=== PATIENT | male | born 1975 | race Caucasian/White ===

== ENCOUNTER 2021-01-10 15:06 | Inpatient (IN) | payer OTHER ==
[2021-01-10] MEDS ORDERED: Albuterol/Ipratropium 3.0-0.5 MG/3 ML Neb Soln ONE (15:23)
[2021-01-10] MEDS ORDERED: Albuterol/Ipratropium 3.0-0.5 MG/3 ML Neb Soln NEB PRN (15:25)
--- NOTE | 2021-01-10 15:28 | EDM.PDOC ---
ED HPI GENERAL MEDICAL PROBLEM - General Chief Complaint: Respiratory Problem Stated Complaint: HIGH BP/SOB Time Seen by Provider: 01/10/21 15:16 Source of Information: Reports: Patient History Limitations: Reports: No Limitations - History of Present Illness INITIAL COMMENTS - FREE TEXT/NARRATIVE: 45-year-old male presents to the ED due to increased shortness of breath on mini mal exertion and audible wheezing. He states has been like this and gradually getting worse over the last 6 to 8 months. States he can walk across the box coverer hand without becoming short of breath. 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 Patient started smoking cigarettes 5 years ago. He has no history of childhood asthma. Occasional cough with occasional white sputum production. No hemoptysis. He is waking up with a severe headache every morning suggesting hypercapnia. He has a headache a good portion of the day most days which has been gradually getting worse. No problems with his balance or change in eyesight. He has not seen a physician for many years. He is currently on no medications from a doctor. Blood pressure initially is markedly elevated at 178/122. Onset: Gradual, Unknown/Unsure (As of shortness of breath with audible wheezing started longer than 6 months ago.) Duration: Chronic, Getting Worse Location: Reports: Head (Neck daily headaches.), Chest (Shortness of breath with audible wheezing.) Quality: Reports: Ache, Other Severity: Severe (Of breath with audible wheezing on minimal exertion.) Improves with: Reports: Rest Worsens with: Reports: Other Context: Denies: Activity (Worsens with exertion as does dyspnea and wheezing.), Exercise, Lifting, Sick Contact, Trauma Associated Symptoms: Reports: Cough, Loss of Appetite (Next will sometimes make him lose his appetite.), Malaise, Shortness of Breath (Daily and especially on minimal exertion even dressing himself will make him dyspneic.), Weakness (Social with dyspnea and wheezing.). 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 (see below) (None.) - Related Data Allergies Allergy/AdvReac Type Severity Reaction Status Date / Time No Known Allergies Allergy Verified 01/10/21 15:13 Home Meds: Home Meds Albuterol Sulfate [Albuterol Sulfate HFA] 8.5 gm INH Q2H PRN #1 inhaler 01/10/21 [Rx] Albuterol/Ipratropium [DuoNeb 3.0-0.5 MG/3 ML] 3 ml .XX BID #60 neb 01/10/21 [Rx] Furosemide [Lasix] 20 mg PO DAILY #30 tab 01/10/21 [Rx] Valsartan 160 mg PO DAILY #30 tablet 01/10/21 [Rx] dilTIAZem HCL [Diltiazem 24Hr Cd] 300 mg PO DAILY #30 cap.er.24h 01/10/21 [Rx] Past Medical History HEENT History: Reports: None Cardiovascular History: Reports: Hypertension Respiratory History: Reports: None Gastrointestinal History: Reports: None Genitourinary History: Reports: None Musculoskeletal History: Reports: None Neurological History: Reports: None Psychiatric History: Reports: None Endocrine/Metabolic History: Reports: None Hematologic History: Reports: None Immunologic History: Reports: None Oncologic (Cancer) History: Reports: None Dermatologic History: Reports: None - Infectious Disease History Infectious Disease History: Reports: Chicken Pox - Past Surgical History Head Surgeries/Procedures: Reports: None HEENT Surgical History: Reports: Oral Surgery Other HEENT Surgeries/Procedures: implants placed recently Cardiovascular Surgical History: Reports: None Respiratory Surgical History: Reports: None GI Surgical History: Reports: None Male Surgical History: Reports: None Endocrine Surgical History: Reports: None Neurological Surgical History: Reports: None Musculoskeletal Surgical History: Reports: Other (See Below) Other Musculoskeletal Surgeries/Procedures:: right collar bone -metal Oncologic Surgical History: Reports: None Dermatological Surgical History: Reports: None Social & Family History - Family History Family Medical History: No Pertinent Family History - Tobacco Use Tobacco Use Status *Q: Current Every Day Tobacco User Years of Tobacco use: 5 Packs/Tins Daily: 0.5 - Caffeine Use Caffeine Use: Reports: Energy Drinks Caffeine Use Comment: 1 gal/day - Recreational Drug Use Recreational Drug Use: No - Living Situation & Occupation Living situation: Reports: Single Occupation: Employed ED ROS GENERAL - Review of Systems Review Of Systems: See Below Constitutional: Reports: Malaise, Weakness, Fatigue. Denies: Fever, Chills, Decreased Appetite, Weight Loss HEENT: Reports: Glasses (Reading), Hearing Loss Respiratory: Reports: Shortness of Breath, Wheezing (Hearing loss), Cough (That he does not know about. Blood pressure is markedly elevated on today's evaluation). Denies: Pleuritic Chest Pain, Sputum, Hemoptysis, Other (Cough) Cardiovascular: Reports: Blood Pressure Problem, Dyspnea on Exertion. Denies: Chest Pain, Claudication, Edema, Lightheadedness, Orthopnea, Palpitations Endocrine: Reports: Fatigue GI/Abdominal: Reports: Decreased Appetite, Nausea. Denies: Abdominal Pain, Anorexia, Black Stool, Bloody Stool, Constipation (Associate with severe headaches.), Diarrhea, Difficulty Swallowing, Distension, Flatus, Hematemesis, Hematochezia, Mucous in Stool, Stool Incontinence, Vomiting, Other : Reports: Frequency (Patient on nausea when the headaches bad), Other (Nocturia x2) Musculoskeletal: Reports: Back Pain, Joint Pain Skin: Reports: No Symptoms (The sips neck at times) Neurological: Reports: Headache (Take on a daily basis.), Difficulty Walking (Dyspnea and wheezing.) Psychiatric: Reports: No Symptoms Hematologic/Lymphatic: Reports: No Symptoms Immunologic: Reports: No Symptoms ED EXAM, GENERAL - Physical Exam Exam: See Below Exam Limited By: No Limitations General Appearance: Alert, WD/WN, Moderate Distress, Other (Patient has audible wheezing when I walked in the room. Temperature is 36.6 degrees heart rate was 106 and sinus on the monitor respiratory rate 16 with O2 sats of 89% on room air. BP was 229/140 on initial evaluation. Second evaluation came down to 169/118) Eye Exam: Bilateral Eye: Normal Inspection, PERRL Ears: Normal TMs Throat/Mouth: Normal Inspection, Normal Lips, Normal Teeth, Normal Oropharynx Head: Atraumatic, Normocephalic Neck: Normal Inspection, Supple, Non-Tender, Full Range of Motion, Tender Lateral (Some crepitus on lateral rotation of his neck.). No: Lymphadenopathy (L), Lymphadenopathy (R) Respiratory/Chest: Respiratory Distress, Decreased Breath Sounds, Wheezing (Tachypnea 16 to 20/min), Other (Patient has a linear scar along his right clavicle at the site of repair of fractured clavicle in the past.). No: No Respiratory Distress, Lungs Clear ( [place] from all lung nick.), Normal Breath Sounds Cardiovascular: Normal Peripheral Pulses, Regular Rate, Rhythm, No Edema, No Gallop, No Murmur (Creased air entry to the lower 25% lung nick bilaterally.), No Rub, Tachycardia (Tachycardia at 106/min but it came down to 75/min after he was settled on the gurney for 20 minutes.) Peripheral Pulses: 2+: Radial (L), Radial (R), Posterior Tibial (L), Posterior Tibial (R), Dorsalis Pedis (L), Dorsalis Pedis (R), 3+: Carotid (L), Carotid (R) GI/Abdominal: Normal Bowel Sounds, Soft, Non-Tender, No Organomegaly, No Mass, Pelvis Stable, Distended (Mildly distended tympany to percussion in the epigastrium only. No surgical scars) Back Exam: Normal Inspection, Full Range of Motion, Other. No: CVA Tenderness (L), CVA Tenderness (R) Extremities: Normal Inspection, Normal Range of Motion, Non-Tender, No Pedal Edema, Other (He has evidence of mild arthritic change in both knees.) Neurological: Alert, Oriented, CN II-XII Intact, Normal Cognition Psychiatric: Normal Affect, Normal Mood Skin Exam: Warm, Dry, Intact, Normal Color, No Rash #1 Interpretation EKG Date: 01/10/21 Time: 15:15 Rhythm: Other Rate (Beats/Min): 116 [place]: Normal P-Wave: Present QRS: Other (Q waves V1 V2 V3 compared with old anteroseptal myocardial infarction. Borderline criteria for left ventricular hypertrophy pattern decreased voltage limb leads) ST-T: Other (T wave flattening leads III aVF) QT: Prolonged (Mildly prolonged) EKG Interpretation Comments: Abnormal ECG Course - Vital Signs Last Recorded V/S: Last Vital Signs Temp 36.6 C 01/10/21 15:10 Pulse 106 H 01/10/21 15:10 Resp 16 01/10/21 18:31 BP 147/80 H 01/10/21 18:31 Pulse Ox 99 01/10/21 18:31 - Orders/Labs/Meds Orders: Active Orders 24 hr Category Date Time Status Admission Status [Patient Status] [ADT] Routine ADT 01/10/21 18:09 Active EKG Documentation Completion [RC] ASDIRECTED Care 01/10/21 15:19 Active Oxygen Therapy [RC] ASDIRECTED Care 01/10/21 15:45 Active RT Aerosol Therapy [RC] ASDIRECTED Care 01/10/21 15:25 Active RT Aerosol Therapy [RC] ASDIRECTED Care 01/10/21 17:51 Active RT Post Treatment Assessment [RC] Click to Edit Care 01/10/21 17:16 Active RT Pre-Treatment Assessment [RC] Click to Edit Care 01/10/21 17:16 Active TROPONIN I [CHEM] Stat Lab 01/10/21 18:42 Received Albuterol [Proventil HFA] Med 01/10/21 17:15 Active 8.5 gm INH Q4H PRN Albuterol/Ipratropium [DuoNeb 3.0-0.5 MG/3 ML] Med 01/10/21 15:25 Active 3 ml NEB Q4H PRN Sodium Chloride 0.9% [Normal Saline] 1,000 ml Med 01/10/21 15:45 Active IV ASDIRECTED EKG 12 Lead [EK] Stat Ther 01/10/21 15:19 Ordered Labs: Laboratory Tests 01/10/21 01/10/21 01/10/21 Range/Units 15:17 15:17 15:17 WBC 10.86 H (4.23-9.07) K/mm3 RBC 5.58 (4.63-6.08) M/mm3 Hgb 16.0 (13.7-17.5) gm/dl Hct 50.5 (40.1-51.0) % MCV 90.5 D (79.0-92.2) fl MCH 28.7 (25.7-32.2) pg MCHC 31.7 L (32.2-35.5) g/dl RDW Std Deviation 47.4 H (35.1-43.9) fL Plt Count 283 D (163-337) K/mm3 MPV 10.3 (9.4-12.3) fl Neut % (Auto) 74.9 H (34.0-67.9) % Lymph % (Auto) 14.2 L (21.8-53.1) % Kimble % (Auto) 9.6 (5.3-12.2) % Eos % (Auto) 0.9 (0.8-7.0) Baso % (Auto) 0.3 (0.1-1.2) % Neut # (Auto) 8.14 H (1.78-5.38) K/mm3 Lymph # (Auto) 1.54 (1.32-3.57) K/mm3 [place] # (Auto) 1.04 H (0.30-0.82) K/mm3 Eos # (Auto) 0.10 (0.04-0.54) K/mm3 Baso # (Auto) 0.03 (0.01-0.08) K/mm3 Manual Slide Review Normal smear PT 11.4 (9.7-12.0) SECONDS INR 1.07 APTT 29.8 (21.7-31.4) SECONDS Puncture Site ABG pH (7.35-7.45) ABG pCO2 (35.0-45.0) mmHg ABG pO2 (80.0-100.0) mmHg ABG HCO3 (22.0-26.0) meq/L ABG O2 Saturation (96.0-97.0) % ABG Base Excess (-2-2.0) Marvin Test O2 Delivery Device Sodium 145 (136-145) mEq/L Potassium 3.9 (3.5-5.1) mEq/L Chloride 103 (98-107) mEq/L Carbon Dioxide 37 H (21-32) mEq/L Anion Gap 8.9 (5-15) BUN 12 (7-18) mg/dL Creatinine 1.1 (0.7-1.3) mg/dL Est Cr Clr Drug Dosing 77.62 mL/min Estimated GFR (MDRD) > 60 (>60) mL/min BUN/Creatinine Ratio 10.9 L (14-18) Glucose 95 (74-106) mg/dL Calcium 9.2 (8.5-10.1) mg/dL Magnesium 2.3 (1.8-2.4) mg/dl Total Bilirubin 0.3 (0.2-1.0) mg/dL AST 26 (15-37) U/L ALT 48 (16-63) U/L Alkaline Phosphatase 105 (46-116) U/L CK-MB (CK-2) 1.9 (0-3.6) ng/ml Troponin I 0.068 H* (0.00-0.056) ng/mL C-Reactive Protein 0.5 (<1.0) mg/dL NT-Pro-B Natriuret Pep (0-125) pg/mL Total Protein 7.2 (6.4-8.2) g/dl Albumin 3.6 (3.4-5.0) g/dl Globulin 3.6 gm/dL Albumin/Globulin Ratio 1.0 (1-2) Urine Color (Yellow) Urine Appearance (Clear) Urine pH (5.0-8.0) Ur Specific [place] (1.005-1.030) Urine Protein (Negative) Urine Glucose (UA) (Negative) Urine Ketones (Negative) Urine Occult Blood (Negative) Urine Nitrite (Negative) Urine Bilirubin (Negative) Urine Urobilinogen (0.2-1.0) Ur Leukocyte Esterase (Negative) Urine RBC (0-5) /hpf Urine WBC (0-5) /hpf Ur Epithelial Cells (0-5) /hpf Amorphous Sediment (NOT SEEN) /hpf Urine Bacteria (FEW) /hpf Urine Mucus (FEW) /hpf SARS-CoV-2 RNA (DANIELA) (NEGATIVE) 01/10/21 01/10/21 01/10/21 Range/Units 15:17 15:25 16:23 WBC (4.23-9.07) K/mm3 RBC (4.63-6.08) M/mm3 Hgb (13.7-17.5) gm/dl Hct (40.1-51.0) % MCV (79.0-92.2) fl MCH (25.7-32.2) pg MCHC (32.2-35.5) g/dl RDW Std Deviation (35.1-43.9) fL Plt Count (163-337) K/mm3 MPV (9.4-12.3) fl Neut % (Auto) (34.0-67.9) % Lymph % (Auto) (21.8-53.1) % [place] % (Auto) (5.3-12.2) % Eos % (Auto) (0.8-7.0) Baso % (Auto) (0.1-1.2) % Neut # (Auto) (1.78-5.38) K/mm3 Lymph # (Auto) (1.32-3.57) K/mm3 [place] # (Auto) (0.30-0.82) K/mm3 Eos # (Auto) (0.04-0.54) K/mm3 Baso # (Auto) (0.01-0.08) K/mm3 Manual Slide Review PT (9.7-12.0) SECONDS INR APTT (21.7-31.4) SECONDS Puncture Site Rt radial ABG pH 7.42 (7.35-7.45) ABG pCO2 50.7 H (35.0-45.0) mmHg ABG pO2 57.0 L (80.0-100.0) mmHg ABG HCO3 32.3 H (22.0-26.0) meq/L ABG O2 Saturation 91.4 L (96.0-97.0) % ABG Base Excess 6.7 H (-2-2.0) Marvin Test Positive O2 Delivery Device Room air Sodium (136-145) mEq/L Potassium (3.5-5.1) mEq/L Chloride (98-107) mEq/L Carbon Dioxide (21-32) mEq/L Anion Gap (5-15) BUN (7-18) mg/dL Creatinine (0.7-1.3) mg/dL Est Cr Clr Drug Dosing mL/min Estimated GFR (MDRD) (>60) mL/min BUN/Creatinine Ratio (14-18) Glucose (74-106) mg/dL Calcium (8.5-10.1) mg/dL Magnesium (1.8-2.4) mg/dl Total Bilirubin (0.2-1.0) mg/dL AST (15-37) U/L ALT (16-63) U/L Alkaline Phosphatase (46-116) U/L CK-MB (CK-2) (0-3.6) ng/ml Troponin I (0.00-0.056) ng/mL C-Reactive Protein (<1.0) mg/dL NT-Pro-B Natriuret Pep 856 H (0-125) pg/mL Total Protein (6.4-8.2) g/dl Albumin (3.4-5.0) g/dl Globulin gm/dL Albumin/Globulin Ratio (1-2) Urine Color (Yellow) Urine Appearance (Clear) Urine pH (5.0-8.0) Ur Specific [place] (1.005-1.030) Urine Protein (Negative) Urine Glucose (UA) (Negative) Urine Ketones (Negative) Urine Occult Blood (Negative) Urine Nitrite (Negative) Urine Bilirubin (Negative) Urine Urobilinogen (0.2-1.0) Ur Leukocyte Esterase (Negative) Urine RBC (0-5) /hpf Urine WBC (0-5) /hpf Ur Epithelial Cells (0-5) /hpf Amorphous Sediment (NOT SEEN) /hpf Urine Bacteria (FEW) /hpf Urine Mucus (FEW) /hpf SARS-CoV-2 RNA (DANIELA) Negative (NEGATIVE) 01/10/21 Range/Units 17:16 WBC (4.23-9.07) K/mm3 RBC (4.63-6.08) M/mm3 Hgb (13.7-17.5) gm/dl Hct (40.1-51.0) % MCV (79.0-92.2) fl MCH (25.7-32.2) pg MCHC (32.2-35.5) g/dl RDW Std Deviation (35.1-43.9) fL Plt Count (163-337) K/mm3 MPV (9.4-12.3) fl Neut % (Auto) (34.0-67.9) % Lymph % (Auto) (21.8-53.1) % [place] % (Auto) (5.3-12.2) % Eos % (Auto) (0.8-7.0) Baso % (Auto) (0.1-1.2) % Neut # (Auto) (1.78-5.38) K/mm3 Lymph # (Auto) (1.32-3.57) K/mm3 [place] # (Auto) (0.30-0.82) K/mm3 Eos # (Auto) (0.04-0.54) K/mm3 Baso # (Auto) (0.01-0.08) K/mm3 Manual Slide Review PT (9.7-12.0) SECONDS INR APTT (21.7-31.4) SECONDS Puncture Site ABG pH (7.35-7.45) ABG pCO2 (35.0-45.0) mmHg ABG pO2 (80.0-100.0) mmHg ABG HCO3 (22.0-26.0) meq/L ABG O2 Saturation (96.0-97.0) % ABG Base Excess (-2-2.0) Marvin Test O2 Delivery Device Sodium (136-145) mEq/L Potassium (3.5-5.1) mEq/L Chloride (98-107) mEq/L Carbon Dioxide (21-32) mEq/L Anion Gap (5-15) BUN (7-18) mg/dL Creatinine (0.7-1.3) mg/dL Est Cr Clr Drug Dosing mL/min Estimated GFR (MDRD) (>60) mL/min BUN/Creatinine Ratio (14-18) Glucose (74-106) mg/dL Calcium (8.5-10.1) mg/dL Magnesium (1.8-2.4) mg/dl Total Bilirubin (0.2-1.0) mg/dL AST (15-37) U/L ALT (16-63) U/L Alkaline Phosphatase (46-116) U/L CK-MB (CK-2) (0-3.6) ng/ml Troponin I (0.00-0.056) ng/mL C-Reactive Protein (<1.0) mg/dL NT-Pro-B Natriuret Pep (0-125) pg/mL Total Protein (6.4-8.2) g/dl Albumin (3.4-5.0) g/dl Globulin gm/dL Albumin/Globulin Ratio (1-2) Urine Color Yellow (Yellow) Urine Appearance Clear (Clear) Urine pH 7.5 (5.0-8.0) Ur Specific [place] 1.025 (1.005-1.030) Urine Protein Negative (Negative) Urine Glucose (UA) Negative (Negative) Urine Ketones Negative (Negative) Urine Occult Blood Negative (Negative) Urine Nitrite Negative (Negative) Urine Bilirubin Negative (Negative) Urine Urobilinogen 0.2 (0.2-1.0) Ur Leukocyte Esterase Negative (Negative) Urine RBC Not seen (0-5) /hpf Urine WBC 0-5 (0-5) /hpf Ur Epithelial Cells Not seen (0-5) /hpf Amorphous Sediment Few H (NOT SEEN) /hpf Urine Bacteria Rare (FEW) /hpf Urine Mucus Not seen (FEW) /hpf SARS-CoV-2 RNA (DANIELA) (NEGATIVE) - Radiology Interpretation Free Text/Narrative:: 45-year-old male presents to the ED due to gradually worsening shortness of breath and audible wheezing over the last 6 or 8 months. States he cannot walk across his box coverer hand without becoming severely dyspneic. Patient started smoking cigarettes 5 years ago. Does have a mild occasional cough usually not bringing up any sputum. He has a daily chronic severe headache usually worst first thing in the morning but often awakens during the night due to headache. He has been waking up at night short of breath the last several nights as well. No known heart disease. Patient is rarely seen a physician in his lifetime. He is currently on no medications from a doctor. His ECG suggests an old anteroseptal myocardial infarction otherwise sinus tachycardia initial presentation. Blood pressure markedly elevated at 170/118. O2 sats 89 to 90% on room air. Patient has diffuse wheezing throughout all 5 lung nick. Plan ABGs will be done immediately to see if he is a CO2 retainer. He will then be started on oxygen at 2 L/min by nasal cannula. When normal saline at 75 mils per hour. Routine labs to be collected including BNP and cardiac markers. Chest x-ray 1 view to be obtained. I will monitor his blood pressure for period of time but I suspect he has uncontrolled hypertension and will require medication for this. He will receive DuoNeb now and repeat in 1/2-hour. ABGs were initial E ordered before starting him on oxygen 2 L/min by nasal cannula. His ECGs reveals evidence of an old anteroseptal myocardial infarction of which he is not aware of. - Re-Assessments/Exams Free Text/Narrative Re-Assessment/Exam: 01/10/21 15:59 blood pressure remains markedly elevated at 180/135. I am going to give him hydralazine 10 mg IV. 01/10/21 16:29 Patient feels much improved after inhalation of DuoNeb x2. He had very little wheezing right lung field posteriorly on examination at this time. Blood pressure is just trying to come down since he received hydralazine 10 minutes ago. It is currently 172/102. He of the head has been completed without contrast. It is within normal limits. There is no intracranial bleed there is no mass-effect basal ganglia are well identified. There is very minimal ischemic changes in both basal ganglia. No lacunar infarcts. All the sinuses are clear. Chest X-ray reveals very mild cardiomegaly. Prominence of t he right pulmonary artery appreciated. There are mild bronchitis in this area. No pleural effusions no pneumothorax. Visualized lungs are otherwise clear. 01/10/21 16:34 White count is normal at 10.86. Differential is 75% neutrophils. Hemoglobin is 16.0 with hematocrit of 50.5 indicating some degree of volume depletion. Platelet counts 283,000. The smear is otherwise normal. PT is 11.4 with an INR of 1.07. PTT is 29.8. ABGs revealed a pH of 7.42 with a PCO2 of 50.7 indicating some degree of CO2 retention. PO2 was 57 with O2 sats of 91.4% on room air. Sodium 145 with a potassium of 3.9 chloride 103 with a bicarb of 37. Anion gap is 8.9. BUN is 12 with a creatinine of 1.1 GFR greater than 60. Glucose 95 with a calcium of 9.2. Magnesium normal at 2.3. Liver function is normal. CK-MB is 1.9 troponin I is mildly elevated at 0.068. C-reactive protein is 0.5 BNP is elevated at 856. Give Lasix 40 mg IV and enalapril 1.25 mg IV for further blood pressure reduction. The Lasix is due to the mildly elevated BNP which is likely the cause of his mildly elevated troponin. Therefore he has a combination of mild congestive failure and asthma. Point to require further follow-up of blood pressure and needs an echocardiogram and perhaps cardiology consultation and even an angiogram as his ECG suggests an old anteroseptal myocardial infarction. I think he is best suited to follow-up with an internal medicine physician such as Dr. Jacobo. 01/10/21 17:12 Radiologist over read of CT of the head is now available. Ventricles along with the basal cisterns and sulci over the convexities appear to be within normal limits for the patient's age. No abnormal parenchymal densities are seen. No evidence of intracranial hemorrhage appreciated. No midline shift or mass-effect identified. Bone window settings were reviewed. Minimal fluid is seen within the inferior right mastoid sinus. Otherwise visualized paranasal sinuses show nothing acute. No acute calvarial abnorm alities are appreciated 01/10/21 17:18 blood pressure is currently 167/107. He just got the Vasotec 1.25 mg IV. He also received diltiazem 180 mg CD by mouth. 01/10/21 17:39 Blood pressure remains elevated at 171 /119. I am going to repeat hydralazine 10 mg IV. I am going to take him off his oxygen and see how he does without it. Discussed the findings with the patient that his oxygen lev el being 88 to 89% on room air he needs to be admitted to the hospital. We will continue to work on bringing his asthma under control. Since he is going to be staying in the hospital I am going to give him Solu-Medrol 125 mg IV. I was worried about retaining fluid and increasing his blood pressure as an outpatient. Due to his mildly elevated troponin at 0.068 which I believe is secondary to mild congestive heart failure staying in hospital I will trend him with a repeat troponin at 1830 hrs. today. 01/10/21 18:[address] Jones on-call hospitalist and he agrees with admission to the hospital. We decided on intensive care unit in case he needs to be started on medications intravenously i.e. nicardipine drip etc. to bring his blood pressure under control. 01/10/21 18:40 pressure is now come down to 149/68. This was after the second dose of hydralazine. Also the Diltiazem 300 mg CD preparation should be starting to work at this time as well. Departure - Departure Time of Disposition: 18:50 Disposition: Admitted As Inpatient 64 Condition: Fair Clinical Impression: Uncontrolled hypertension Asthma Qualifiers: Asthma severity: severe Asthma persistence: unspecified Asthma complication type: with acute exacerbation Qualified Code(s): J45.901 - Unspecified asthma with (acute) exacerbation - Discharge Information *PRESCRIPTION DRUG MONITORING PROGRAM REVIEWED*: Not Applicable *COPY OF PRESCRIPTION DRUG MONITORING REPORT IN PATIENT [place]: Not Applicable Sepsis Event Note (ED) - Evaluation Sepsis Screening Result: No Definite Risk - Focused Exam Vital Signs: Vital Signs Temp Pulse Resp BP BP Pulse Ox Pulse Ox 01/10/21 18:31 16 147/80 H 99 01/10/21 17:51 93 L 01/10/21 16:58 20 175/106 H 94 L 01/10/21 16:56 175/106 H 01/10/21 16:18 01/10/21 15:45 97 01/10/21 15:25 01/10/21 15:10 36.6 C 106 H 16 229/140 H 89 L Pulse Ox 01/10/21 18:31 01/10/21 17:51 01/10/21 16:58 01/10/21 16:56 01/10/21 16:18 96 01/10/21 15:45 01/10/21 15:25 96 01/10/21 15:10 - My Orders Last 24 Hours: My Active Orders 01/10/21 15:25 RT Aerosol Therapy [RC] ASDIRECTED Albuterol/Ipratropium [DuoNeb 3.0-0.5 MG/3 ML] 3 ml NEB Q4H PRN 01/10/21 15:45 Oxygen Therapy [RC] ASDIRECTED Sodium Chloride 0.9% [Normal Saline] 1,000 ml IV ASDIRECTED 01/10/21 17:15 Albuterol [Proventil HFA] 8.5 gm INH Q4H PRN 01/10/21 17:16 RT Post Treatment Assessment [RC] Click to Edit RT Pre-Treatment Assessment [RC] Click to Edit 01/10/21 17:51 RT Aerosol Therapy [RC] ASDIRECTED 01/10/21 18:09 Admission Status [Patient Status] [ADT] Routine 01/10/21 18:42 TROPONIN I [CHEM] Stat - Assessment/Plan Last 24 Hours: My Active Orders 01/10/21 15:25 RT Aerosol Therapy [RC] ASDIRECTED Albuterol/Ipratropium [DuoNeb 3.0-0.5 MG/3 ML] 3 ml NEB Q4H PRN 01/10/21 15:45 Oxygen Therapy [RC] ASDIRECTED Sodium Chloride 0.9% [Normal Saline] 1,000 ml IV ASDIRECTED 01/10/21 17:15 Albuterol [Proventil HFA] 8.5 gm INH Q4H PRN 01/10/21 17:16 RT Post Treatment Assessment [RC] Click to Edit RT Pre-Treatment Assessment [RC] Click to Edit 01/10/21 17:51 RT Aerosol Therapy [RC] ASDIRECTED 01/10/21 18:09 Admission Status [Patient Status] [ADT] Routine 01/10/21 18:42 TROPONIN I [CHEM] Stat
[2021-01-10] MEDS ORDERED: Sodium Chloride 0.9% 1,000 ML IV SCH (15:45)
--- NOTE | 2021-01-10 15:56 | CR ---
Chest: Portable view of the chest was obtained. Comparison: No prior chest imaging is available. Heart size and mediastinum are normal. Slight areas of bronchial wall thickening is seen within the right perihilar region compatible with bronchitis. Lungs otherwise are clear with no acute parenchymal change. Plate and screws are noted within the right clavicle. Impression: 1. Slight bronchitis. 2. No additional abnormality is appreciated. Diagnostic code #2
[2021-01-10] MEDS ORDERED: Albuterol/Ipratropium 3.0-0.5 MG/3 ML Neb Soln NEB ONE ×2 (16:00→17:51)
[2021-01-10] MEDS ORDERED: hydrALAZINE 20 MG/ML SDV IVPUSH ONE ×2 (16:00→17:38)
[2021-01-10] MEDS ORDERED: Furosemide 40 MG/4 ML VIAL IVPUSH ONE (16:34)
[2021-01-10] MEDS ORDERED: Enalaprilat 1.25 MG/ML SDV IVPUSH ONE (16:36)
[2021-01-10] MEDS ORDERED: Diltiazem 300 MG Cap.CD PO ONE (16:46)
--- NOTE | 2021-01-10 16:49 | CT ---
Head CT Technique: Multiple axial sections through the brain were obtained. Intravenous contrast was not utilized. Reconstructed coronal and sagittal images were obtained. Comparison: No previous intracranial imaging is available. Findings: Ventricles along with basal cisterns and sulci over the convexities appear within normal limits for the patient's age. No abnormal parenchymal densities are seen. No evidence of intracranial hemorrhage. No midline shift or mass-effect is seen. Bone window settings were reviewed. Minimal fluid is seen within the inferior right mastoid sinus. Other visualized paranasal sinuses show nothing acute. No acute paranasal sinus finding is seen. No acute calvarial abnormality is appreciated. Impression: 1. Slight fluid within the inferior right mastoid sinus. This is most likely incidental if patient has no acute infectious symptoms. 2. No acute intracranial abnormality is appreciated. Diagnostic code #2
[2021-01-10] MEDS ORDERED: Albuterol 6.7 GM Inhaler INH PRN (17:15)
[2021-01-10] MEDS ORDERED: Labetalol 100 MG/20 ML MDV IVPUSH ONE (17:38)
[2021-01-10] MEDS ORDERED: methylPREDNISolone Sodium Succinate 125 MG/2 ML SDV IVPUSH ONE (18:11)
[2021-01-10] MEDS ORDERED: Albuterol 0.083% 2.5 MG/3 ML Neb Soln NEB PRN (19:29)
[2021-01-10] MEDS ORDERED: Ondansetron 4 MG/2 ML SDV IV PRN (19:29)
[2021-01-10] MEDS ORDERED: niCARdipine HCl 25 MG in Sodium Chloride 0.9% 250 ML IV SCH (20:00)
[2021-01-10] MEDS: Albuterol/Ipratropium 3.0-0.5 MG/3 ML Neb Soln NEB SCH (20:09)
--- NOTE | 2021-01-10 20:09 | PCM.HP.2 ---
H&P History of Present Illness - General Date of Service: 01/10/21 Admit Problem/Dx: Admission Diagnosis/Problem Admission Diagnosis/Problem Asthma - History of Present Illness Initial Comments - Free Text/Narative: 45-year-old male who presented to the clinic after passing out walking to his car was referred to the emergency department secondary to severely elevated blood pressure. Patient states that for the last couple weeks he has been unable to walk short distance without getting short of breath and he has having to sleep upright because he feels like he is drowning if he lays down. Patient states he for started getting short of breath approximately 3 years ago and over the last 6 to 8 months has progressively getting worse. He started smoking 5 years ago because when he had dental implants placed he was unable to chew tobacco. He for started chewing tobacco 25 years ago. Patient was last seen by a physician in 2014 and he had severely elevated blood pressure at that time. Patient states that he was very short of breath today and that is why he passed out going to his car. He could not catch his breath. Patient states he has occasional cough with occasional white sputum. No prior history of lung issues prior to 5 years ago. He has been waking up recently with severe headaches and today has a severe headache with blurred vision. He denies any chest pain or palpitations. 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 He does have a right collarbone plate that has been causing him more pain recently. In the emergency department his initial blood pressure was 178/122. He was also hypoxic with initial 88% on room air. - Related Data Allergies/Adverse Reactions: Allergies Allergy/AdvReac Type Severity Reaction Status Date / Time No Known Allergies Allergy Verified 01/10/21 15:13 Home Medications: Home Meds Albuterol Sulfate [Albuterol Sulfate HFA] 8.5 gm INH Q2H PRN #1 inhaler 01/10/21 [Rx] Albuterol/Ipratropium [DuoNeb 3.0-0.5 MG/3 ML] 3 ml .XX BID #60 neb 01/10/21 [Rx] Furosemide [Lasix] 20 mg PO DAILY #30 tab 01/10/21 [Rx] Valsartan 160 mg PO DAILY #30 tablet 01/10/21 [Rx] dilTIAZem HCL [Diltiazem 24Hr Cd] 300 mg PO DAILY #30 cap.er.24h 01/10/21 [Rx] Past Medical History HEENT History: Reports: None Cardiovascular History: Reports: Hypertension, [place] Respiratory History: Reports: None Other Respiratory History: never diagnosed with asthma but struggle to breathe daily Gastrointestinal History: Reports: None Genitourinary History: Reports: None Musculoskeletal History: Reports: None Neurological History: Reports: None Psychiatric History: Reports: None Endocrine/Metabolic History: Reports: None Hematologic History: Reports: None Immunologic History: Reports: None Oncologic (Cancer) History: Reports: None Dermatologic History: Reports: None - Infectious Disease History Infectious Disease History: Reports: Chicken Pox - Past Surgical History Head Surgeries/Procedures: Reports: None HEENT Surgical History: Reports: Oral Surgery Other HEENT Surgeries/Procedures: implants placed recently Cardiovascular Surgical History: Reports: None Respiratory Surgical History: Reports: None GI Surgical History: Reports: None Male Surgical History: Reports: None Endocrine Surgical History: Reports: None Neurological Surgical History: Reports: None Musculoskeletal Surgical History: Reports: Other (See Below) Other Musculoskeletal Surgeries/Procedures:: right collar bone -metal Oncologic Surgical History: Reports: None Dermatological Surgical History: Reports: None Social & Family History - Family History Family Medical History: No Pertinent Family History - Tobacco Use Tobacco Use Status *Q: Light Tobacco User Years of Tobacco use: 5 Packs/Tins Daily: 0.3 Month/Year Tobacco Last Used: t - Caffeine Use Caffeine Use: Reports: Coffee, Energy Drinks Caffeine Use Comment: 1 gal/day - Recreational Drug Use Recreational Drug Use: Yes Drug Use in Last 12 Months: Yes Recreational Drug Type: Reports: Marijuana/Hashish Other Recreational Drug Type: edible marijuana Recreational Drug Use Frequency: Weekly Recreational Drug Last Use: t-1 - Living Situation & Occupation Living situation: Reports: Single Occupation: Employed H&P Review of Systems - Review of Systems: Review Of Systems: Comprehensive ROS is negative, except as noted in HPI. Exam - Exam Exam: See Below - Vital Signs Vital Signs: Last Vital Signs Temp 98 F 01/10/21 15:10 Pulse 106 H 01/10/21 15:10 Resp 16 01/10/21 18:31 BP 147/80 H 01/10/21 18:31 Pulse Ox 99 01/10/21 18:31 Weight: 223 lb 4.8 oz - Exam Quality Assessment: Supplemental Oxygen General: Alert, Oriented, 4 HEENT: Conjunctiva Clear, EOMI, Hearing Intact, Mucosa Moist & [place], Normal Nasal Septum Neck: Supple, Trachea Midline, 2 Lungs: Wheezing. No: Normal Respiratory Effort (Increased effort and rate) Cardiovascular: Regular Rhythm, Normal S1, Normal S2, Tachycardia GI/Abdominal Exam: Normal Bowel Sounds, Soft, Non-Tender, No Organomegaly, No Distention, No Abnormal Bruit, Other (Obese) Back Exam: Normal Inspection, Full Range of Motion, NT Extremities: Normal Inspection, Normal Range of Motion, Non-Tender, No Pedal Lalo ma, Normal Capillary Refill Peripheral Pulses: 2+: Posterior Tibial (L), Posterior Tibial (R), Dorsalis Pedis (L), Dorsalis Pedis (R) Skin: Warm, Dry, Intact Neuro Extensive - Mental Status: Alert, Oriented x3, Normal Mood/Affect, Normal Cognition, Memory Intact Neuro Extensive - Motor, Sensory, Reflexes: CN II-XII Intact Psychiatric: Alert, Normal Affect, Normal Mood - Patient Data Lab Results Last 24 hrs: Laboratory Results - last 24 hr 01/10/21 01/10/21 01/10/21 Range/Units 15:17 15:17 15:17 WBC 10.86 H (4.23-9.07) K/mm3 RBC 5.58 (4.63-6.08) M/mm3 Hgb 16.0 (13.7-17.5) gm/dl Hct 50.5 (40.1-51.0) % MCV 90.5 D (79.0-92.2) fl MCH 28.7 (25.7-32.2) pg MCHC 31.7 L (32.2-35.5) g/dl RDW Std Deviation 47.4 H (35.1-43.9) fL Plt Count 283 D (163-337) K/mm3 MPV 10.3 (9.4-12.3) fl Neut % (Auto) 74.9 H (34.0-67.9) % Lymph % (Auto) 14.2 L (21.8-53.1) % Leake % (Auto) 9.6 (5.3-12.2) % Eos % (Auto) 0.9 (0.8-7.0) Baso % (Auto) 0.3 (0.1-1.2) % Neut # (Auto) 8.14 H (1.78-5.38) K/mm3 Lymph # (Auto) 1.54 (1.32-3.57) K/mm3 Leake # (Auto) 1.04 H (0.30-0.82) K/mm3 Eos # (Auto) 0.10 (0.04-0.54) K/mm3 Baso # (Auto) 0.03 (0.01-0.08) K/mm3 Manual Slide Review Normal smear PT 11.4 (9.7-12.0) SECONDS INR 1.07 APTT 29.8 (21.7-31.4) SECONDS Puncture Site ABG pH (7.35-7.45) ABG pCO2 (35.0-45.0) mmHg ABG pO2 (80.0-100.0) mmHg ABG HCO3 (22.0-26.0) meq/L ABG O2 Saturation (96.0-97.0) % ABG Base Excess (-2-2.0) Marvin Test O2 Delivery Device Sodium 145 (136-145) mEq/L Potassium 3.9 (3.5-5.1) mEq/L Chloride 103 (98-107) mEq/L Carbon Dioxide 37 H (21-32) mEq/L Anion Gap 8.9 (5-15) BUN 12 (7-18) mg/dL Creatinine 1.1 (0.7-1.3) mg/dL Est Cr Clr Drug Dosing 77.62 mL/min Estimated GFR (MDRD) > 60 (>60) mL/min BUN/Creatinine Ratio 10.9 L (14-18) Glucose 95 (74-106) mg/dL Calcium 9.2 (8.5-10.1) mg/dL Magnesium 2.3 (1.8-2.4) mg/dl Total Bilirubin 0.3 (0.2-1.0) mg/dL AST 26 (15-37) U/L ALT 48 (16-63) U/L Alkaline Phosphatase 105 (46-116) U/L CK-MB (CK-2) 1.9 (0-3.6) ng/ml Troponin I 0.068 H* (0.00-0.056) ng/mL C-Reactive Protein 0.5 (<1.0) mg/dL NT-Pro-B Natriuret Pep (0-125) pg/mL Total Protein 7.2 (6.4-8.2) g/dl Albumin 3.6 (3.4-5.0) g/dl Globulin 3.6 gm/dL Albumin/Globulin Ratio 1.0 (1-2) Urine Color (Yellow) Urine Appearance (Clear) Urine pH (5.0-8.0) Ur Specific [place] (1.005-1.030) Urine Protein (Negative) Urine Glucose (UA) (Negative) Urine Ketones (Negative) Urine Occult Blood (Negative) Urine Nitrite (Negative) Urine Bilirubin (Negative) Urine Urobilinogen (0.2-1.0) Ur Leukocyte Esterase (Negative) Urine RBC (0-5) /hpf Urine WBC (0-5) /hpf Ur Epithelial Cells (0-5) /hpf Amorphous Sediment (NOT SEEN) /hpf Urine Bacteria (FEW) /hpf Urine Mucus (FEW) /hpf SARS-CoV-2 RNA (DANIELA) (NEGATIVE) 01/10/21 01/10/21 01/10/21 Range/Units 15:17 15:25 16:23 WBC (4.23-9.07) K/mm3 RBC (4.63-6.08) M/mm3 Hgb (13.7-17.5) gm/dl Hct (40.1-51.0) % MCV (79.0-92.2) fl MCH (25.7-32.2) pg MCHC (32.2-35.5) g/dl RDW Std Deviation (35.1-43.9) fL Plt Count (163-337) K/mm3 MPV (9.4-12.3) fl Neut % (Auto) (34.0-67.9) % Lymph % (Auto) (21.8-53.1) % Leake % (Auto) (5.3-12.2) % Eos % (Auto) (0.8-7.0) Baso % (Auto) (0.1-1.2) % Neut # (Auto) (1.78-5.38) K/mm3 Lymph # (Auto) (1.32-3.57) K/mm3 Leake # (Auto) (0.30-0.82) K/mm3 Eos # (Auto) (0.04-0.54) K/mm3 Baso # (Auto) (0.01-0.08) K/mm3 Manual Slide Review PT (9.7-12.0) SECONDS INR APTT (21.7-31.4) SECONDS Puncture Site Rt radial ABG pH 7.42 (7.35-7.45) ABG pCO2 50.7 H (35.0-45.0) mmHg ABG pO2 57.0 L (80.0-100.0) mmHg ABG HCO3 32.3 H (22.0-26.0) meq/L ABG O2 Saturation 91.4 L (96.0-97.0) % ABG Base Excess 6.7 H (-2-2.0) Marvin Test Positive O2 Delivery Device Room air Sodium (136-145) mEq/L Potassium (3.5-5.1) mEq/L Chloride (98-107) mEq/L Carbon Dioxide (21-32) mEq/L Anion Gap (5-15) BUN (7-18) mg/dL Creatinine (0.7-1.3) mg/dL Est Cr Clr Drug Dosing mL/min Estimated GFR (MDRD) (>60) mL/min BUN/Creatinine Ratio (14-18) Glucose (74-106) mg/dL Calcium (8.5-10.1) mg/dL Magnesium (1.8-2.4) mg/dl Total Bilirubin (0.2-1.0) mg/dL AST (15-37) U/L ALT (16-63) U/L Alkaline Phosphatase (46-116) U/L CK-MB (CK-2) (0-3.6) ng/ml Troponin I (0.00-0.056) ng/mL C-Reactive Protein (<1.0) mg/dL NT-Pro-B Natriuret Pep 856 H (0-125) pg/mL Total Protein (6.4-8.2) g/dl Albumin (3.4-5.0) g/dl Globulin gm/dL Albumin/Globulin Ratio (1-2) Urine Color (Yellow) Urine Appearance (Clear) Urine pH (5.0-8.0) Ur Specific [place] (1.005-1.030) Urine Protein (Negative) Urine Glucose (UA) (Negative) Urine Ketones (Negative) Urine Occult Blood (Negative) Urine Nitrite (Negative) Urine Bilirubin (Negative) Urine Urobilinogen (0.2-1.0) Ur Leukocyte Esterase (Negative) Urine RBC (0-5) /hpf Urine WBC (0-5) /hpf Ur Epithelial Cells (0-5) /hpf Amorphous Sediment (NOT SEEN) /hpf Urine Bacteria (FEW) /hpf Urine Mucus (FEW) /hpf SARS-CoV-2 RNA (DANIELA) Negative (NEGATIVE) 01/10/21 01/10/21 Range/Units 17:16 18:42 WBC (4.23-9.07) K/mm3 RBC (4.63-6.08) M/mm3 Hgb (13.7-17.5) gm/dl Hct (40.1-51.0) % MCV (79.0-92.2) fl MCH (25.7-32.2) pg MCHC (32.2-35.5) g/dl RDW Std Deviation (35.1-43.9) fL Plt Count (163-337) K/mm3 MPV (9.4-12.3) fl Neut % (Auto) (34.0-67.9) % Lymph % (Auto) (21.8-53.1) % Leake % (Auto) (5.3-12.2) % Eos % (Auto) (0.8-7.0) Baso % (Auto) (0.1-1.2) % Neut # (Auto) (1.78-5.38) K/mm3 Lymph # (Auto) (1.32-3.57) K/mm3 Leake # (Auto) (0.30-0.82) K/mm3 Eos # (Auto) (0.04-0.54) K/mm3 Baso # (Auto) (0.01-0.08) K/mm3 Manual Slide Review PT (9.7-12.0) SECONDS INR APTT (21.7-31.4) SECONDS Puncture Site ABG pH (7.35-7.45) ABG pCO2 (35.0-45.0) mmHg ABG pO2 (80.0-100.0) mmHg ABG HCO3 (22.0-26.0) meq/L ABG O2 Saturation (96.0-97.0) % ABG Base Excess (-2-2.0) Marvin Test O2 Delivery Device Sodium (136-145) mEq/L Potassium (3.5-5.1) mEq/L Chloride (98-107) mEq/L Carbon Dioxide (21-32) mEq/L Anion Gap (5-15) BUN (7-18) mg/dL Creatinine (0.7-1.3) mg/dL Est Cr Clr Drug Dosing mL/min Estimated GFR (MDRD) (>60) mL/min BUN/Creatinine Ratio (14-18) Glucose (74-106) mg/dL Calcium (8.5-10.1) mg/dL Magnesium (1.8-2.4) mg/dl Total Bilirubin (0.2-1.0) mg/dL AST (15-37) U/L ALT (16-63) U/L Alkaline Phosphatase (46-116) U/L CK-MB (CK-2) (0-3.6) ng/ml Troponin I 0.065 H* (0.00-0.056) ng/mL C-Reactive Protein (<1.0) mg/dL NT-Pro-B Natriuret Pep (0-125) pg/mL Total Protein (6.4-8.2) g/dl Albumin (3.4-5.0) g/dl Globulin gm/dL Albumin/Globulin Ratio (1-2) Urine Color Yellow (Yellow) Urine Appearance Clear (Clear) Urine pH 7.5 (5.0-8.0) Ur Specific [place] 1.025 (1.005-1.030) Urine Protein Negative (Negative) Urine Glucose (UA) Negative (Negative) Urine Ketones Negative (Negative) Urine Occult Blood Negative (Negative) Urine Nitrite Negative (Negative) Urine Bilirubin Negative (Negative) Urine Urobilinogen 0.2 (0.2-1.0) Ur Leukocyte Esterase Negative (Negative) Urine RBC Not seen (0-5) /hpf Urine WBC 0-5 (0-5) /hpf Ur Epithelial Cells Not seen (0-5) /hpf Amorphous Sediment Few H (NOT SEEN) /hpf Urine Bacteria Rare (FEW) /hpf Urine Mucus Not seen (FEW) /hpf SARS-CoV-2 RNA (DANIELA) (NEGATIVE) Result Diagrams: 01/10/21 15:17 01/10/21 15:17 #1 Interpretation EKG Date: 01/10/21 Time: 01:16 Rhythm: Other (Sinus tachycardia) [place]: Normal P-Wave: Present QRS: Other (Poor R wave progression. Q waves V1 V2 consistent with anterior infarct age undetermined.) ST-T: Normal Sepsis Event Note - Evaluation Sepsis Screening Result: No Definite Risk - Focused Exam Vital Signs: Vital Signs Temp Pulse Resp BP BP Pulse Ox Pulse Ox 01/10/21 18:31 16 147/80 H 99 01/10/21 17:51 93 L 01/10/21 16:58 20 175/106 H 94 L 01/10/21 16:56 175/106 H 01/10/21 16:18 01/10/21 15:45 97 01/10/21 15:25 01/10/21 15:10 98 F 106 H 16 229/140 H 89 L Pulse Ox 01/10/21 18:31 01/10/21 17:51 01/10/21 16:58 01/10/21 16:56 01/10/21 16:18 96 01/10/21 15:45 01/10/21 15:25 96 01/10/21 15:10 - Problem List (1) Severe asthma with exacerbation SNOMED Code(s): 890615673, 822303884 ICD Code: J45.901 - UNSPECIFIED ASTHMA WITH (ACUTE) EXACERBATION Status: Acute Current Visit: Yes (2) Respiratory failure with hypoxia and hypercapnia SNOMED Code(s): 04331681 ICD Code: J96.91 - RESPIRATORY FAILURE, UNSPECIFIED WITH HYPOXIA; J96.92 - RESPIRATORY FAILURE, UNSPECIFIED WITH HYPERCAPNIA Status: Acute Current Visit: Yes (3) Elevated troponin SNOMED Code(s): 698246636, 326402694, 535157223 ICD Code: R77.8 - OTHER SPECIFIED ABNORMALITIES OF PLASMA PROTEINS Status: Acute Current Visit: Yes (4) Elevated brain natriuretic peptide (BNP) level SNOMED Code(s): 649765138, 790597739 ICD Code: R79.89 - OTHER SPECIFIED ABNORMAL FINDINGS OF BLOOD CHEMISTRY Status: Acute Current Visit: Yes (5) Asthma SNOMED Code(s): 571973930 ICD Code: J45.909 - UNSPECIFIED ASTHMA, UNCOMPLICATED Status: Acute Current Visit: Yes Qualifiers: Asthma severity: severe Asthma persistence: unspecified Asthma complication type: with acute exacerbation Qualified Code(s): J45.901 - Unspecified asthma with (acute) exacerbation (6) Uncontrolled hypertension SNOMED Code(s): 18734428, 99138808 ICD Code: I10 - ESSENTIAL (PRIMARY) HYPERTENSION Status: Acute Current Visit: Yes Problem List Initiated/Reviewed/Updated: Yes Orders Last 24hrs: Active Orders 24 hr Category Date Time Status Admission Status [Patient Status] [ADT] Routine ADT 01/10/21 18:09 Active EKG Documentation Completion [RC] ASDIRECTED Care 01/10/21 15:19 Active Oxygen Therapy [RC] ASDIRECTED Care 01/10/21 15:45 Active RT Aerosol Therapy [RC] ASDIRECTED Care 01/10/21 17:51 Active RT Aerosol Therapy [RC] ASDIRECTED Care 01/10/21 19:31 Active RT Post Treatment Assessment [RC] Click to Edit Care 01/10/21 17:16 Active RT Pre-Treatment Assessment [RC] Click to Edit Care 01/10/21 17:16 Active Up ad Marisabel [RC] ASDIRECTED Care 01/10/21 19:29 Active VTE/DVT Education [RC] PER UNIT ROUTINE Care 01/10/21 19:29 Active Vital Signs [RC] Q4H Care 01/10/21 19:29 Active Heart Healthy Diet [DIET] Diet 01/11/21 Breakfast Active Art Doni Duplex Renal Ltd [US] Routine Exams 01/11/21 19:25 Ordered Echo Comp wo Cont [US] Routine Exams 01/11/21 Ordered Kidney Ultrasound [Retroperitoneal Comp] [US] Routine Exams 01/11/21 Ordered ALDOSTERONE [REF] Routine Lab 01/11/21 08:00 Ordered ALDOSTERONE/RENIN RATIO [REF] Routine Lab 01/11/21 08:00 Ordered CBC WITH AUTO DIFF [HEME] AM Lab 01/11/21 05:11 Ordered CMP [COMPREHENSIVE METABOLIC PN,CMP] [CHEM] AM Lab 01/11/21 05:11 Ordered LIPID PANEL [CHEM] AM Lab 01/11/21 05:11 Ordered PROTEIN/CREATININE RATIO,URINE [URCHEM] Routine Lab 01/10/21 17:16 Received T4 FREE [CHEM] Routine Lab 01/10/21 15:17 Received TROPONIN I [CHEM] AM Lab 01/11/21 05:11 Ordered TROPONIN I [CHEM] Stat Lab 01/10/21 19:27 Ordered TSH [CHEM] Routine Lab 01/10/21 15:17 Received URIC ACID [CHEM] AM Lab 01/11/21 05:11 Ordered Acetaminophen [TylenoL] Med 01/10/21 19:29 Active 650 mg PO Q4H PRN Albuterol [Proventil HFA] Med 01/10/21 17:15 Active 8.5 gm INH Q4H PRN Albuterol [Proventil Neb Soln] Med 01/10/21 19:29 Active 2.5 mg NEB Q2H PRN Albuterol/Ipratropium [DuoNeb 3.0-0.5 MG/3 ML] Med 01/10/21 21:00 Active 3 ml NEB Q6HRRT Chlorthalidone Med 01/11/21 09:00 Active 25 mg PO DAILY Enoxaparin [Lovenox] Med 01/11/21 09:00 Active 40 mg SUBCUT DAILY Metoprolol Tartrate [Lopressor] Med 01/10/21 20:00 Active 50 mg PO Q12H Ondansetron [Zofran] Med 01/10/21 19:29 Active 4 mg IV Q4H PRN Sodium Chloride 0.9% [Normal Saline] 1,000 ml Med 01/10/21 15:45 Active IV ASDIRECTED lisinopriL [Prinivil] Med 01/10/21 21:00 Active 20 mg PO BEDTIME methylPREDNISolone Sod Succ [Solu-MEDROL] Med 01/10/21 20:00 Ordered 40 mg IVPUSH Q6H niCARdipine HCl [Nicardipine HCl] 25 mg Med 01/10/21 20:00 Active Sodium Chloride 0.9% [Normal Saline] 250 ml IV TITRATE Resuscitation Status Routine Resus Stat 01/10/21 19:29 Ordered EKG 12 Lead [EK] Stat Ther 01/10/21 15:19 Ordered Assessment/Plan Comment:: Assessment 45-year-old male with no significant prior medical history presents with severe asthma exacerbation and malignant hypertension. Patient has been having worsening shortness of breath for 3 years and last seen 6 years ago by a physician. At that time he was told he had high blood pressure and started on blood pressure medication. Acute asthma exacerbation Bronchitis Acute respiratory failure mixed hypoxia and hypercapnia * Syncopal episode likely secondary to respiratory failure * Initial oxygen saturations in the upper 80s requiring multiple DuoNeb breathing treatments in the emergency department * Blood gas consistent with compensated respiratory alkalosis suggesting a long course of CO2 retention * Chest x-ray consistent with bronchitis but no cardiomegaly. * Still requiring 2 L nasal cannula at time of admission * Receive Solu-Medrol 125 mg IV x1 in the emergency department Malignant hypertension Likely history of previous hypertension diagnosed 6 years ago No known work-up of hypertension * Initial blood pressure 178/122 * Required multiple IV medications to control blood pressure including Vasotec 1 .25 mg IV, hydralazine 10 mg IV x2, p.o. Cardizem CD 300 mg x 1, Furosemide 40 mg IV x1 * EKG consistent with previous anteroseptal infarct * Mildly elevated BNP and troponin showing cardiac strain and possible type II [place] Plan * Admit to ICU * Nicardipine drip if blood pressure becomes unstable and sustained again with systolic pressure greater than 180 or diastolic blood pressure greater than 110 * Hydralazine 10 mg every 2 hours as needed for blood pressures greater than 1 70/100 * Start metoprolol tartrate 25 mg p.o. every 12 hours in the morning if respiratory status allows * Lisinopril 20 mg p.o. bedtime * Crestor 10 mg p.o. daily * ASA 81 mg daily * Solu-Medrol 40 mg every 6 hours IV * Doxycycline 100 mg IV every 12 hours * DuoNeb every 6 hours scheduled * Albuterol every 2 hours as needed * FiO2 to keep SPO2 above 92% * CBC, CMP, mag, aldosterone, aldosterone/renin ratio, TSH, T4, echocardiogram, kidney ultrasound with renal artery Dopplers, repeat troponin, lipid panel, uric acid * VTE prophylaxis with Lovenox * CODE STATUS: Full code - Mortality Measure Prognosis:: Good
[2021-01-10] MEDS ORDERED: hydrALAZINE 20 MG/ML SDV IVPUSH PRN (20:11)
[2021-01-10] MEDS: Acetaminophen 325 MG Tab PO PRN (20:29)
[2021-01-10] MEDS: methylPREDNISolone Sodium Succinate 40 MG/1 ML SDV IVPUSH SCH (20:30)
[2021-01-10] MEDS: Metoprolol Tartrate 50 MG Tab PO SCH (20:32)
[2021-01-10] MEDS: Lisinopril 20 MG Tab PO SCH (20:43)
[2021-01-10] MEDS: Doxycycline 100 MG in Sodium Chloride 0.9% 100 ML IV SCH (22:03)
[2021-01-11] MEDS: methylPREDNISolone Sodium Succinate 40 MG/1 ML SDV IVPUSH SCH ×3 (02:21→14:30)
[2021-01-11] MEDS: Albuterol/Ipratropium 3.0-0.5 MG/3 ML Neb Soln NEB SCH ×4 (02:43→20:01)
[2021-01-11] MEDS: Acetaminophen 325 MG Tab PO PRN ×4 (04:22→20:39)
[2021-01-11] MEDS: Rosuvastatin 10 MG Tab PO SCH (08:48)
[2021-01-11] MEDS: Aspirin 81 MG Tab.EC PO SCH (08:48)
[2021-01-11] MEDS: Metoprolol Tartrate 50 MG Tab PO SCH ×2 (08:48→20:19)
[2021-01-11] MEDS: Chlorthalidone 25 MG Tab PO SCH (08:49)
[2021-01-11] MEDS: Doxycycline 100 MG in Sodium Chloride 0.9% 100 ML IV SCH (08:49)
[2021-01-11] MEDS: Enoxaparin 40 MG/0.4 ML Syringe SUBCUT SCH (08:49)
--- NOTE | 2021-01-11 09:31 | PCM.PN ---
- General Info Date of Service: 01/11/21 Subjective Update: The patient has a minimal headache. He denies dizziness, lightheadedness. Discussed the effects of hypertension on the organ systems. Especially enuro, renal and cardiovascular. The patient complains of SOB with less activity; he denies orthopnea/bendopnea, or PND. 2D echo is ordered for today. Will also add CT of chest w, wo contrast for pulmonary disease. The patient smokes tobacco (states that he is down to 5 cigarettes daily), Marijuana; will need to clarify exposure to vaping. Functional Status: Reports: Tolerating Diet, Ambulating, Urinating - Review of Systems General: Reports: No Symptoms HEENT: Reports: No Symptoms Pulmonary: Reports: No Symptoms Cardiovascular: Reports: No Symptoms Gastrointestinal: Reports: No Symptoms Genitourinary: Reports: No Symptoms Musculoskeletal: Reports: No Symptoms Skin: Reports: No Symptoms Neurological: Reports: No Symptoms Psychiatric: Reports: No Symptoms - Patient Data Vitals - Most Recent: Last Vital Signs Temp 36.1 C 01/11/21 08:00 Pulse 67 01/11/21 08:48 Resp 16 01/11/21 08:00 BP 126/84 01/11/21 08:48 Pulse Ox 91 L 01/11/21 08:00 Weight - Most Recent: 99.79 kg I&O - Last 24 Hours: Intake & Output 01/10/21 01/11/21 01/11/21 22:59 06:59 14:59 Intake Total 600 1060 Output Total 990 Balance 600 70 Lab Results Last 24 Hours: Laboratory Results - last 24 hr 01/10/21 01/10/21 01/10/21 Range/Units 15:17 15:17 15:17 WBC 10.86 H (4.23-9.07) K/mm3 RBC 5.58 (4.63-6.08) M/mm3 Hgb 16.0 (13.7-17.5) gm/dl Hct 50.5 (40.1-51.0) % MCV 90.5 D (79.0-92.2) fl MCH 28.7 (25.7-32.2) pg MCHC 31.7 L (32.2-35.5) g/dl RDW Std Deviation 47.4 H (35.1-43.9) fL Plt Count 283 D (163-337) K/mm3 MPV 10.3 (9.4-12.3) fl Neut % (Auto) 74.9 H (34.0-67.9) % Lymph % (Auto) 14.2 L (21.8-53.1) % [place] % (Auto) 9.6 (5.3-12.2) % Eos % (Auto) 0.9 (0.8-7.0) Baso % (Auto) 0.3 (0.1-1.2) % Neut # (Auto) 8.14 H (1.78-5.38) K/mm3 Lymph # (Auto) 1.54 (1.32-3.57) K/mm3 [place] # (Auto) 1.04 H (0.30-0.82) K/mm3 Eos # (Auto) 0.10 (0.04-0.54) K/mm3 Baso # (Auto) 0.03 (0.01-0.08) K/mm3 Manual Slide Review Normal smear PT 11.4 (9.7-12.0) SECONDS INR 1.07 APTT 29.8 (21.7-31.4) SECONDS Puncture Site ABG pH (7.35-7.45) ABG pCO2 (35.0-45.0) mmHg ABG pO2 (80.0-100.0) mmHg ABG HCO3 (22.0-26.0) meq/L ABG O2 Saturation (96.0-97.0) % ABG Base Excess (-2-2.0) Marvin Test O2 Delivery Device Sodium 145 (136-145) mEq/L Potassium 3.9 (3.5-5.1) mEq/L Chloride 103 (98-107) mEq/L Carbon Dioxide 37 H (21-32) mEq/L Anion Gap 8.9 (5-15) BUN 12 (7-18) mg/dL Creatinine 1.1 (0.7-1.3) mg/dL Est Cr Clr Drug Dosing 77.62 mL/min Estimated GFR (MDRD) > 60 (>60) mL/min BUN/Creatinine Ratio 10.9 L (14-18) Glucose 95 (74-106) mg/dL Uric Acid (3.5-7.2) mg/dL Calcium 9.2 (8.5-10.1) mg/dL Magnesium 2.3 (1.8-2.4) mg/dl Total Bilirubin 0.3 (0.2-1.0) mg/dL AST 26 (15-37) U/L ALT 48 (16-63) U/L Alkaline Phosphatase 105 (46-116) U/L CK-MB (CK-2) 1.9 (0-3.6) ng/ml Troponin I 0.068 H* (0.00-0.056) ng/mL C-Reactive Protein 0.5 (<1.0) mg/dL NT-Pro-B Natriuret Pep (0-125) pg/mL Total Protein 7.2 (6.4-8.2) g/dl Albumin 3.6 (3.4-5.0) g/dl Globulin 3.6 gm/dL Albumin/Globulin Ratio 1.0 (1-2) Triglycerides (<150) mg/dL Cholesterol (<200) mg/dL LDL Cholesterol Direct (<100) mg/dL HDL Cholesterol (40-59) mg/dL Free T4 (0.76-1.46) ng/dL TSH 3rd Generation (0.358-3.74) uIU/mL Urine Color (Yellow) Urine Appearance (Clear) Urine pH (5.0-8.0) Ur Specific [place] (1.005-1.030) Urine Protein (Negative) Urine Glucose (UA) (Negative) Urine Ketones (Negative) Urine Occult Blood (Negative) Urine Nitrite (Negative) Urine Bilirubin (Negative) Urine Urobilinogen (0.2-1.0) Ur Leukocyte Esterase (Negative) Urine RBC (0-5) /hpf Urine WBC (0-5) /hpf Ur Epithelial Cells (0-5) /hpf Amorphous Sediment (NOT SEEN) /hpf Urine Bacteria (FEW) /hpf Urine Mucus (FEW) /hpf Ur Random Creatinine (30.0-125.0) mg/dL U Random Total Protein (0.0-11.8) mg/dL Protein/Creatinin Ratio (0-149) mg/g SARS-CoV-2 RNA (DANIELA) (NEGATIVE) 01/10/21 01/10/21 01/10/21 Range/Units 15:17 15:17 15:25 WBC (4.23-9.07) K/mm3 RBC (4.63-6.08) M/mm3 Hgb (13.7-17.5) gm/dl Hct (40.1-51.0) % MCV (79.0-92.2) fl MCH (25.7-32.2) pg MCHC (32.2-35.5) g/dl RDW Std Deviation (35.1-43.9) fL Plt Count (163-337) K/mm3 MPV (9.4-12.3) fl Neut % (Auto) (34.0-67.9) % Lymph % (Auto) (21.8-53.1) % [place] % (Auto) (5.3-12.2) % Eos % (Auto) (0.8-7.0) Baso % (Auto) (0.1-1.2) % Neut # (Auto) (1.78-5.38) K/mm3 Lymph # (Auto) (1.32-3.57) K/mm3 [place] # (Auto) (0.30-0.82) K/mm3 Eos # (Auto) (0.04-0.54) K/mm3 Baso # (Auto) (0.01-0.08) K/mm3 Manual Slide Review PT (9.7-12.0) SECONDS INR APTT (21.7-31.4) SECONDS Puncture Site Rt radial ABG pH 7.42 (7.35-7.45) ABG pCO2 50.7 H (35.0-45.0) mmHg ABG pO2 57.0 L (80.0-100.0) mmHg ABG HCO3 32.3 H (22.0-26.0) meq/L ABG O2 Saturation 91.4 L (96.0-97.0) % ABG Base Excess 6.7 H (-2-2.0) Marvin Test Positive O2 Delivery Device Room air Sodium (136-145) mEq/L Potassium (3.5-5.1) mEq/L Chloride (98-107) mEq/L Carbon Dioxide (21-32) mEq/L Anion Gap (5-15) BUN (7-18) mg/dL Creatinine (0.7-1.3) mg/dL Est Cr Clr Drug Dosing mL/min Estimated GFR (MDRD) (>60) mL/min BUN/Creatinine Ratio (14-18) Glucose (74-106) mg/dL Uric Acid (3.5-7.2) mg/dL Calcium (8.5-10.1) mg/dL Magnesium (1.8-2.4) mg/dl Total Bilirubin (0.2-1.0) mg/dL AST (15-37) U/L ALT (16-63) U/L Alkaline Phosphatase (46-116) U/L CK-MB (CK-2) (0-3.6) ng/ml Troponin I (0.00-0.056) ng/mL C-Reactive Protein (<1.0) mg/dL NT-Pro-B Natriuret Pep 856 H (0-125) pg/mL Total Protein (6.4-8.2) g/dl Albumin (3.4-5.0) g/dl Globulin gm/dL Albumin/Globulin Ratio (1-2) Triglycerides (<150) mg/dL Cholesterol (<200) mg/dL LDL Cholesterol Direct (<100) mg/dL HDL Cholesterol (40-59) mg/dL Free T4 1.17 (0.76-1.46) ng/dL TSH 3rd Generation 1.111 (0.358-3.74) uIU/mL Urine Color (Yellow) Urine Appearance (Clear) Urine pH (5.0-8.0) Ur Specific [place] (1.005-1.030) Urine Protein (Negative) Urine Glucose (UA) (Negative) Urine Ketones (Negative) Urine Occult Blood (Negative) Urine Nitrite (Negative) Urine Bilirubin (Negative) Urine Urobilinogen (0.2-1.0) Ur Leukocyte Esterase (Negative) Urine RBC (0-5) /hpf Urine WBC (0-5) /hpf Ur Epithelial Cells (0-5) /hpf Amorphous Sediment (NOT SEEN) /hpf Urine Bacteria (FEW) /hpf Urine Mucus (FEW) /hpf Ur Random Creatinine (30.0-125.0) mg/dL U Random Total Protein (0.0-11.8) mg/dL Protein/Creatinin Ratio (0-149) mg/g SARS-CoV-2 RNA (DANIELA) (NEGATIVE) 01/10/21 01/10/21 01/10/21 Range/Units 16:23 17:16 17:16 WBC (4.23-9.07) K/mm3 RBC (4.63-6.08) M/mm3 Hgb (13.7-17.5) gm/dl Hct (40.1-51.0) % MCV (79.0-92.2) fl MCH (25.7-32.2) pg MCHC (32.2-35.5) g/dl RDW Std Deviation (35.1-43.9) fL Plt Count (163-337) K/mm3 MPV (9.4-12.3) fl Neut % (Auto) (34.0-67.9) % Lymph % (Auto) (21.8-53.1) % [place] % (Auto) (5.3-12.2) % Eos % (Auto) (0.8-7.0) Baso % (Auto) (0.1-1.2) % Neut # (Auto) (1.78-5.38) K/mm3 Lymph # (Auto) (1.32-3.57) K/mm3 [place] # (Auto) (0.30-0.82) K/mm3 Eos # (Auto) (0.04-0.54) K/mm3 Baso # (Auto) (0.01-0.08) K/mm3 Manual Slide Review PT (9.7-12.0) SECONDS INR APTT (21.7-31.4) SECONDS Puncture Site ABG pH (7.35-7.45) ABG pCO2 (35.0-45.0) mmHg ABG pO2 (80.0-100.0) mmHg ABG HCO3 (22.0-26.0) meq/L ABG O2 Saturation (96.0-97.0) % ABG Base Excess (-2-2.0) Marvin Test O2 Delivery Device Sodium (136-145) mEq/L Potassium (3.5-5.1) mEq/L Chloride (98-107) mEq/L Carbon Dioxide (21-32) mEq/L Anion Gap (5-15) BUN (7-18) mg/dL Creatinine (0.7-1.3) mg/dL Est Cr Clr Drug Dosing mL/min Estimated GFR (MDRD) (>60) mL/min BUN/Creatinine Ratio (14-18) Glucose (74-106) mg/dL Uric Acid (3.5-7.2) mg/dL Calcium (8.5-10.1) mg/dL Magnesium (1.8-2.4) mg/dl Total Bilirubin (0.2-1.0) mg/dL AST (15-37) U/L ALT (16-63) U/L Alkaline Phosphatase (46-116) U/L CK-MB (CK-2) (0-3.6) ng/ml Troponin I (0.00-0.056) ng/mL C-Reactive Protein (<1.0) mg/dL NT-Pro-B Natriuret Pep (0-125) pg/mL Total Protein (6.4-8.2) g/dl Albumin (3.4-5.0) g/dl Globulin gm/dL Albumin/Globulin Ratio (1-2) Triglycerides (<150) mg/dL Cholesterol (<200) mg/dL LDL Cholesterol Direct (<100) mg/dL HDL Cholesterol (40-59) mg/dL Free T4 (0.76-1.46) ng/dL TSH 3rd Generation (0.358-3.74) uIU/mL Urine Color Yellow (Yellow) Urine Appearance Clear (Clear) Urine pH 7.5 (5.0-8.0) Ur Specific [place] 1.025 (1.005-1.030) Urine Protein Negative (Negative) Urine Glucose (UA) Negative (Negative) Urine Ketones Negative (Negative) Urine Occult Blood Negative (Negative) Urine Nitrite Negative (Negative) Urine Bilirubin Negative (Negative) Urine Urobilinogen 0.2 (0.2-1.0) Ur Leukocyte Esterase Negative (Negative) Urine RBC Not seen (0-5) /hpf Urine WBC 0-5 (0-5) /hpf Ur Epithelial Cells Not seen (0-5) /hpf Amorphous Sediment Few H (NOT SEEN) /hpf Urine Bacteria Rare (FEW) /hpf Urine Mucus Not seen (FEW) /hpf Ur Random Creatinine 55.8 (30.0-125.0) mg/dL U Random Total Protein 12.0 H (0.0-11.8) mg/dL Protein/Creatinin Ratio 215.1 H (0-149) mg/g SARS-CoV-2 RNA (DANIELA) Negative (NEGATIVE) 01/10/21 01/10/21 01/11/21 Range/Units 18:42 22:01 06:02 WBC 7.63 (4.23-9.07) K/mm3 RBC 5.27 (4.63-6.08) M/mm3 Hgb 15.3 (13.7-17.5) gm/dl Hct 47.9 (40.1-51.0) % MCV 90.9 (79.0-92.2) fl MCH 29.0 (25.7-32.2) pg MCHC 31.9 L (32.2-35.5) g/dl RDW Std Deviation 48.2 H (35.1-43.9) fL Plt Count 256 (163-337) K/mm3 MPV 10.2 (9.4-12.3) fl Neut % (Auto) 95.3 H (34.0-67.9) % Lymph % (Auto) 3.9 L (21.8-53.1) % [place] % (Auto) 0.7 L (5.3-12.2) % Eos % (Auto) 0 L (0.8-7.0) Baso % (Auto) 0.0 L (0.1-1.2) % Neut # (Auto) 7.27 H (1.78-5.38) K/mm3 Lymph # (Auto) 0.30 L (1.32-3.57) K/mm3 [place] # (Auto) 0.05 L (0.30-0.82) K/mm3 Eos # (Auto) 0.00 L (0.04-0.54) K/mm3 Baso # (Auto) 0.00 L (0.01-0.08) K/mm3 Manual Slide Review Abnormal smear PT (9.7-12.0) SECONDS INR APTT (21.7-31.4) SECONDS Puncture Site ABG pH (7.35-7.45) ABG pCO2 (35.0-45.0) mmHg ABG pO2 (80.0-100.0) mmHg ABG HCO3 (22.0-26.0) meq/L ABG O2 Saturation (96.0-97.0) % ABG Base Excess (-2-2.0) Marvin Test O2 Delivery Device Sodium (136-145) mEq/L Potassium (3.5-5.1) mEq/L Chloride (98-107) mEq/L Carbon Dioxide (21-32) mEq/L Anion Gap (5-15) BUN (7-18) mg/dL Creatinine (0.7-1.3) mg/dL Est Cr Clr Drug Dosing mL/min Estimated GFR (MDRD) (>60) mL/min BUN/Creatinine Ratio (14-18) Glucose (74-106) mg/dL Uric Acid (3.5-7.2) mg/dL Calcium (8.5-10.1) mg/dL Magnesium (1.8-2.4) mg/dl Total Bilirubin (0.2-1.0) mg/dL AST (15-37) U/L ALT (16-63) U/L Alkaline Phosphatase (46-116) U/L CK-MB (CK-2) (0-3.6) ng/ml Troponin I 0.065 H* 0.060 H* (0.00-0.056) ng/mL C-Reactive Protein (<1.0) mg/dL NT-Pro-B Natriuret Pep (0-125) pg/mL Total Protein (6.4-8.2) g/dl Albumin (3.4-5.0) g/dl Globulin gm/dL Albumin/Globulin Ratio (1-2) Triglycerides (<150) mg/dL Cholesterol (<200) mg/dL LDL Cholesterol Direct (<100) mg/dL HDL Cholesterol (40-59) mg/dL Free T4 (0.76-1.46) ng/dL TSH 3rd Generation (0.358-3.74) uIU/mL Urine Color (Yellow) Urine Appearance (Clear) Urine pH (5.0-8.0) Ur Specific [place] (1.005-1.030) Urine Protein (Negative) Urine Glucose (UA) (Negative) Urine Ketones (Negative) Urine Occult Blood (Negative) Urine Nitrite (Negative) Urine Bilirubin (Negative) Urine Urobilinogen (0.2-1.0) Ur Leukocyte Esterase (Negative) Urine RBC (0-5) /hpf Urine WBC (0-5) /hpf Ur Epithelial Cells (0-5) /hpf Amorphous Sediment (NOT SEEN) /hpf Urine Bacteria (FEW) /hpf Urine Mucus (FEW) /hpf Ur Random Creatinine (30.0-125.0) mg/dL U Random Total Protein (0.0-11.8) mg/dL Protein/Creatinin Ratio (0-149) mg/g SARS-CoV-2 RNA (DANIELA) (NEGATIVE) 01/11/21 Range/Units 06:02 WBC (4.23-9.07) K/mm3 RBC (4.63-6.08) M/mm3 Hgb (13.7-17.5) gm/dl Hct (40.1-51.0) % MCV (79.0-92.2) fl MCH (25.7-32.2) pg MCHC (32.2-35.5) g/dl RDW Std Deviation (35.1-43.9) fL Plt Count (163-337) K/mm3 MPV (9.4-12.3) fl Neut % (Auto) (34.0-67.9) % Lymph % (Auto) (21.8-53.1) % [place] % (Auto) (5.3-12.2) % Eos % (Auto) (0.8-7.0) Baso % (Auto) (0.1-1.2) % Neut # (Auto) (1.78-5.38) K/mm3 Lymph # (Auto) (1.32-3.57) K/mm3 [place] # (Auto) (0.30-0.82) K/mm3 Eos # (Auto) (0.04-0.54) K/mm3 Baso # (Auto) (0.01-0.08) K/mm3 Manual Slide Review PT (9.7-12.0) SECONDS INR APTT (21.7-31.4) SECONDS Puncture Site ABG pH (7.35-7.45) ABG pCO2 (35.0-45.0) mmHg ABG pO2 (80.0-100.0) mmHg ABG HCO3 (22.0-26.0) meq/L ABG O2 Saturation (96.0-97.0) % ABG Base Excess (-2-2.0) Marvin Test O2 Delivery Device Sodium 143 (136-145) mEq/L Potassium 4.4 (3.5-5.1) mEq/L Chloride 103 (98-107) mEq/L Carbon Dioxide 32 (21-32) mEq/L Anion Gap 12.4 (5-15) BUN 14 (7-18) mg/dL Creatinine 1.1 (0.7-1.3) mg/dL Est Cr Clr Drug Dosing 77.62 mL/min Estimated GFR (MDRD) > 60 (>60) mL/min BUN/Creatinine Ratio 12.7 L (14-18) Glucose 179 H (74-106) mg/dL Uric Acid 5.1 (3.5-7.2) mg/dL Calcium 9.4 (8.5-10.1) mg/dL Magnesium 2.1 (1.8-2.4) mg/dl Total Bilirubin 0.4 (0.2-1.0) mg/dL AST 18 (15-37) U/L ALT 41 (16-63) U/L Alkaline Phosphatase 82 (46-116) U/L CK-MB (CK-2) (0-3.6) ng/ml Troponin I 0.037 (0.00-0.056) ng/mL C-Reactive Protein (<1.0) mg/dL NT-Pro-B Natriuret Pep (0-125) pg/mL Total Protein 6.9 (6.4-8.2) g/dl Albumin 3.3 L (3.4-5.0) g/dl Globulin 3.6 gm/dL Albumin/Globulin Ratio 0.9 L (1-2) Triglycerides 26 (<150) mg/dL Cholesterol 155 (<200) mg/dL LDL Cholesterol Direct 94 (<100) mg/dL HDL Cholesterol 52.0 (40-59) mg/dL Free T4 (0.76-1.46) ng/dL TSH 3rd Generation (0.358-3.74) uIU/mL Urine Color (Yellow) Urine Appearance (Clear) Urine pH (5.0-8.0) Ur Specific [place] (1.005-1.030) Urine Protein (Negative) Urine Glucose (UA) (Negative) Urine Ketones (Negative) Urine Occult Blood (Negative) Urine Nitrite (Negative) Urine Bilirubin (Negative) Urine Urobilinogen (0.2-1.0) Ur Leukocyte Esterase (Negative) Urine RBC (0-5) /hpf Urine WBC (0-5) /hpf Ur Epithelial Cells (0-5) /hpf Amorphous Sediment (NOT SEEN) /hpf Urine Bacteria (FEW) /hpf Urine Mucus (FEW) /hpf Ur Random Creatinine (30.0-125.0) mg/dL U Random Total Protein (0.0-11.8) mg/dL Protein/Creatinin Ratio (0-149) mg/g SARS-CoV-2 RNA (DANIELA) (NEGATIVE) - Exam Quality Assessment: Supplemental Oxygen, DVT Prophylaxis General: Alert, Oriented, Cooperative, No Acute Distress HEENT: Pupils Equal, Pupils Reactive, EOMI Neck: Trachea Midline, No JVD Lungs: Clear to Auscultation, Normal Respiratory Effort Cardiovascular: Regular Rate, Regular Rhythm GI/Abdominal Exam: Normal Bowel Sounds, Soft, Non-Tender, No Organomegaly (Male) Exam: Deferred Back Exam: Normal Inspection Extremities: Normal Inspection, Normal Capillary Refill Skin: Warm Neurological: No New Focal Deficit Psy/Mental Status: Alert, Normal Affect, Normal Mood - Patient Data Lab Results Last 24 hrs: Laboratory Results - last 24 hr 01/10/21 01/10/21 01/10/21 Range/Units 15:17 15:17 15:17 WBC 10.86 H (4.23-9.07) K/mm3 RBC 5.58 (4.63-6.08) M/mm3 Hgb 16.0 (13.7-17.5) gm/dl Hct 50.5 (40.1-51.0) % MCV 90.5 D (79.0-92.2) fl MCH 28.7 (25.7-32.2) pg MCHC 31.7 L (32.2-35.5) g/dl RDW Std Deviation 47.4 H (35.1-43.9) fL Plt Count 283 D (163-337) K/mm3 MPV 10.3 (9.4-12.3) fl Neut % (Auto) 74.9 H (34.0-67.9) % Lymph % (Auto) 14.2 L (21.8-53.1) % [place] % (Auto) 9.6 (5.3-12.2) % Eos % (Auto) 0.9 (0.8-7.0) Baso % (Auto) 0.3 (0.1-1.2) % Neut # (Auto) 8.14 H (1.78-5.38) K/mm3 Lymph # (Auto) 1.54 (1.32-3.57) K/mm3 [place] # (Auto) 1.04 H (0.30-0.82) K/mm3 Eos # (Auto) 0.10 (0.04-0.54) K/mm3 Baso # (Auto) 0.03 (0.01-0.08) K/mm3 Manual Slide Review Normal smear PT 11.4 (9.7-12.0) SECONDS INR 1.07 APTT 29.8 (21.7-31.4) SECONDS Puncture Site ABG pH (7.35-7.45) ABG pCO2 (35.0-45.0) mmHg ABG pO2 (80.0-100.0) mmHg ABG HCO3 (22.0-26.0) meq/L ABG O2 Saturation (96.0-97.0) % ABG Base Excess (-2-2.0) Marvin Test O2 Delivery Device Sodium 145 (136-145) mEq/L Potassium 3.9 (3.5-5.1) mEq/L Chloride 103 (98-107) mEq/L Carbon Dioxide 37 H (21-32) mEq/L Anion Gap 8.9 (5-15) BUN 12 (7-18) mg/dL Creatinine 1.1 (0.7-1.3) mg/dL Est Cr Clr Drug Dosing 77.62 mL/min Estimated GFR (MDRD) > 60 (>60) mL/min BUN/Creatinine Ratio 10.9 L (14-18) Glucose 95 (74-106) mg/dL Uric Acid (3.5-7.2) mg/dL Calcium 9.2 (8.5-10.1) mg/dL Magnesium 2.3 (1.8-2.4) mg/dl Total Bilirubin 0.3 (0.2-1.0) mg/dL AST 26 (15-37) U/L ALT 48 (16-63) U/L Alkaline Phosphatase 105 (46-116) U/L CK-MB (CK-2) 1.9 (0-3.6) ng/ml Troponin I 0.068 H* (0.00-0.056) ng/mL C-Reactive Protein 0.5 (<1.0) mg/dL NT-Pro-B Natriuret Pep (0-125) pg/mL Total Protein 7.2 (6.4-8.2) g/dl Albumin 3.6 (3.4-5.0) g/dl Globulin 3.6 gm/dL Albumin/Globulin Ratio 1.0 (1-2) Triglycerides (<150) mg/dL Cholesterol (<200) mg/dL LDL Cholesterol Direct (<100) mg/dL HDL Cholesterol (40-59) mg/dL Free T4 (0.76-1.46) ng/dL TSH 3rd Generation (0.358-3.74) uIU/mL Urine Color (Yellow) Urine Appearance (Clear) Urine pH (5.0-8.0) Ur Specific [place] (1.005-1.030) Urine Protein (Negative) Urine Glucose (UA) (Negative) Urine Ketones (Negative) Urine Occult Blood (Negative) Urine Nitrite (Negative) Urine Bilirubin (Negative) Urine Urobilinogen (0.2-1.0) Ur Leukocyte Esterase (Negative) Urine RBC (0-5) /hpf Urine WBC (0-5) /hpf Ur Epithelial Cells (0-5) /hpf Amorphous Sediment (NOT SEEN) /hpf Urine Bacteria (FEW) /hpf Urine Mucus (FEW) /hpf Ur Random Creatinine (30.0-125.0) mg/dL U Random Total Protein (0.0-11.8) mg/dL Protein/Creatinin Ratio (0-149) mg/g SARS-CoV-2 RNA (DANIELA) (NEGATIVE) 01/10/21 01/10/21 01/10/21 Range/Units 15:17 15:17 15:25 WBC (4.23-9.07) K/mm3 RBC (4.63-6.08) M/mm3 Hgb (13.7-17.5) gm/dl Hct (40.1-51.0) % MCV (79.0-92.2) fl MCH (25.7-32.2) pg MCHC (32.2-35.5) g/dl RDW Std Deviation (35.1-43.9) fL Plt Count (163-337) K/mm3 MPV (9.4-12.3) fl Neut % (Auto) (34.0-67.9) % Lymph % (Auto) (21.8-53.1) % [place] % (Auto) (5.3-12.2) % Eos % (Auto) (0.8-7.0) Baso % (Auto) (0.1-1.2) % Neut # (Auto) (1.78-5.38) K/mm3 Lymph # (Auto) (1.32-3.57) K/mm3 [place] # (Auto) (0.30-0.82) K/mm3 Eos # (Auto) (0.04-0.54) K/mm3 Baso # (Auto) (0.01-0.08) K/mm3 Manual Slide Review PT (9.7-12.0) SECONDS INR APTT (21.7-31.4) SECONDS Puncture Site Rt radial ABG pH 7.42 (7.35-7.45) ABG pCO2 50.7 H (35.0-45.0) mmHg ABG pO2 57.0 L (80.0-100.0) mmHg ABG HCO3 32.3 H (22.0-26.0) meq/L ABG O2 Saturation 91.4 L (96.0-97.0) % ABG Base Excess 6.7 H (-2-2.0) Marvin Test Positive O2 Delivery Device Room air Sodium (136-145) mEq/L Potassium (3.5-5.1) mEq/L Chloride (98-107) mEq/L Carbon Dioxide (21-32) mEq/L Anion Gap (5-15) BUN (7-18) mg/dL Creatinine (0.7-1.3) mg/dL Est Cr Clr Drug Dosing mL/min Estimated GFR (MDRD) (>60) mL/min BUN/Creatinine Ratio (14-18) Glucose (74-106) mg/dL Uric Acid (3.5-7.2) mg/dL Calcium (8.5-10.1) mg/dL Magnesium (1.8-2.4) mg/dl Total Bilirubin (0.2-1.0) mg/dL AST (15-37) U/L ALT (16-63) U/L Alkaline Phosphatase (46-116) U/L CK-MB (CK-2) (0-3.6) ng/ml Troponin I (0.00-0.056) ng/mL C-Reactive Protein (<1.0) mg/dL NT-Pro-B Natriuret Pep 856 H (0-125) pg/mL Total Protein (6.4-8.2) g/dl Albumin (3.4-5.0) g/dl Globulin gm/dL Albumin/Globulin Ratio (1-2) Triglycerides (<150) mg/dL Cholesterol (<200) mg/dL LDL Cholesterol Direct (<100) mg/dL HDL Cholesterol (40-59) mg/dL Free T4 1.17 (0.76-1.46) ng/dL TSH 3rd Generation 1.111 (0.358-3.74) uIU/mL Urine Color (Yellow) Urine Appearance (Clear) Urine pH (5.0-8.0) Ur Specific [place] (1.005-1.030) Urine Protein (Negative) Urine Glucose (UA) (Negative) Urine Ketones (Negative) Urine Occult Blood (Negative) Urine Nitrite (Negative) Urine Bilirubin (Negative) Urine Urobilinogen (0.2-1.0) Ur Leukocyte Esterase (Negative) Urine RBC (0-5) /hpf Urine WBC (0-5) /hpf Ur Epithelial Cells (0-5) /hpf Amorphous Sediment (NOT SEEN) /hpf Urine Bacteria (FEW) /hpf Urine Mucus (FEW) /hpf Ur Random Creatinine (30.0-125.0) mg/dL U Random Total Protein (0.0-11.8) mg/dL Protein/Creatinin Ratio (0-149) mg/g SARS-CoV-2 RNA (DANIELA) (NEGATIVE) 01/10/21 01/10/21 01/10/21 Range/Units 16:23 17:16 17:16 WBC (4.23-9.07) K/mm3 RBC (4.63-6.08) M/mm3 Hgb (13.7-17.5) gm/dl Hct (40.1-51.0) % MCV (79.0-92.2) fl MCH (25.7-32.2) pg MCHC (32.2-35.5) g/dl RDW Std Deviation (35.1-43.9) fL Plt Count (163-337) K/mm3 MPV (9.4-12.3) fl Neut % (Auto) (34.0-67.9) % Lymph % (Auto) (21.8-53.1) % [place] % (Auto) (5.3-12.2) % Eos % (Auto) (0.8-7.0) Baso % (Auto) (0.1-1.2) % Neut # (Auto) (1.78-5.38) K/mm3 Lymph # (Auto) (1.32-3.57) K/mm3 [place] # (Auto) (0.30-0.82) K/mm3 Eos # (Auto) (0.04-0.54) K/mm3 Baso # (Auto) (0.01-0.08) K/mm3 Manual Slide Review PT (9.7-12.0) SECONDS INR APTT (21.7-31.4) SECONDS Puncture Site ABG pH (7.35-7.45) ABG pCO2 (35.0-45.0) mmHg ABG pO2 (80.0-100.0) mmHg ABG HCO3 (22.0-26.0) meq/L ABG O2 Saturation (96.0-97.0) % ABG Base Excess (-2-2.0) Marvin Test O2 Delivery Device Sodium (136-145) mEq/L Potassium (3.5-5.1) mEq/L Chloride (98-107) mEq/L Carbon Dioxide (21-32) mEq/L Anion Gap (5-15) BUN (7-18) mg/dL Creatinine (0.7-1.3) mg/dL Est Cr Clr Drug Dosing mL/min Estimated GFR (MDRD) (>60) mL/min BUN/Creatinine Ratio (14-18) Glucose (74-106) mg/dL Uric Acid (3.5-7.2) mg/dL Calcium (8.5-10.1) mg/dL Magnesium (1.8-2.4) mg/dl Total Bilirubin (0.2-1.0) mg/dL AST (15-37) U/L ALT (16-63) U/L Alkaline Phosphatase (46-116) U/L CK-MB (CK-2) (0-3.6) ng/ml Troponin I (0.00-0.056) ng/mL C-Reactive Protein (<1.0) mg/dL NT-Pro-B Natriuret Pep (0-125) pg/mL Total Protein (6.4-8.2) g/dl Albumin (3.4-5.0) g/dl Globulin gm/dL Albumin/Globulin Ratio (1-2) Triglycerides (<150) mg/dL Cholesterol (<200) mg/dL LDL Cholesterol Direct (<100) mg/dL HDL Cholesterol (40-59) mg/dL Free T4 (0.76-1.46) ng/dL TSH 3rd Generation (0.358-3.74) uIU/mL Urine Color Yellow (Yellow) Urine Appearance Clear (Clear) Urine pH 7.5 (5.0-8.0) Ur Specific [place] 1.025 (1.005-1.030) Urine Protein Negative (Negative) Urine Glucose (UA) Negative (Negative) Urine Ketones Negative (Negative) Urine Occult Blood Negative (Negative) Urine Nitrite Negative (Negative) Urine Bilirubin Negative (Negative) Urine Urobilinogen 0.2 (0.2-1.0) Ur Leukocyte Esterase Negative (Negative) Urine RBC Not seen (0-5) /hpf Urine WBC 0-5 (0-5) /hpf Ur Epithelial Cells Not seen (0-5) /hpf Amorphous Sediment Few H (NOT SEEN) /hpf Urine Bacteria Rare (FEW) /hpf Urine Mucus Not seen (FEW) /hpf Ur Random Creatinine 55.8 (30.0-125.0) mg/dL U Random Total Protein 12.0 H (0.0-11.8) mg/dL Protein/Creatinin Ratio 215.1 H (0-149) mg/g SARS-CoV-2 RNA (DANIELA) Negative (NEGATIVE) 01/10/21 01/10/21 01/11/21 Range/Units 18:42 22:01 06:02 WBC 7.63 (4.23-9.07) K/mm3 RBC 5.27 (4.63-6.08) M/mm3 Hgb 15.3 (13.7-17.5) gm/dl Hct 47.9 (40.1-51.0) % MCV 90.9 (79.0-92.2) fl MCH 29.0 (25.7-32.2) pg MCHC 31.9 L (32.2-35.5) g/dl RDW Std Deviation 48.2 H (35.1-43.9) fL Plt Count 256 (163-337) K/mm3 MPV 10.2 (9.4-12.3) fl Neut % (Auto) 95.3 H (34.0-67.9) % Lymph % (Auto) 3.9 L (21.8-53.1) % [place] % (Auto) 0.7 L (5.3-12.2) % Eos % (Auto) 0 L (0.8-7.0) Baso % (Auto) 0.0 L (0.1-1.2) % Neut # (Auto) 7.27 H (1.78-5.38) K/mm3 Lymph # (Auto) 0.30 L (1.32-3.57) K/mm3 [place] # (Auto) 0.05 L (0.30-0.82) K/mm3 Eos # (Auto) 0.00 L (0.04-0.54) K/mm3 Baso # (Auto) 0.00 L (0.01-0.08) K/mm3 Manual Slide Review Abnormal smear PT (9.7-12.0) SECONDS INR APTT (21.7-31.4) SECONDS Puncture Site ABG pH (7.35-7.45) ABG pCO2 (35.0-45.0) mmHg ABG pO2 (80.0-100.0) mmHg ABG HCO3 (22.0-26.0) meq/L ABG O2 Saturation (96.0-97.0) % ABG Base Excess (-2-2.0) Marvin Test O2 Delivery Device Sodium (136-145) mEq/L Potassium (3.5-5.1) mEq/L Chloride (98-107) mEq/L Carbon Dioxide (21-32) mEq/L Anion Gap (5-15) BUN (7-18) mg/dL Creatinine (0.7-1.3) mg/dL Est Cr Clr Drug Dosing mL/min Estimated GFR (MDRD) (>60) mL/min BUN/Creatinine Ratio (14-18) Glucose (74-106) mg/dL Uric Acid (3.5-7.2) mg/dL Calcium (8.5-10.1) mg/dL Magnesium (1.8-2.4) mg/dl Total Bilirubin (0.2-1.0) mg/dL AST (15-37) U/L ALT (16-63) U/L Alkaline Phosphatase (46-116) U/L CK-MB (CK-2) (0-3.6) ng/ml Troponin I 0.065 H* 0.060 H* (0.00-0.056) ng/mL C-Reactive Protein (<1.0) mg/dL NT-Pro-B Natriuret Pep (0-125) pg/mL Total Protein (6.4-8.2) g/dl Albumin (3.4-5.0) g/dl Globulin gm/dL Albumin/Globulin Ratio (1-2) Triglycerides (<150) mg/dL Cholesterol (<200) mg/dL LDL Cholesterol Direct (<100) mg/dL HDL Cholesterol (40-59) mg/dL Free T4 (0.76-1.46) ng/dL TSH 3rd Generation (0.358-3.74) uIU/mL Urine Color (Yellow) Urine Appearance (Clear) Urine pH (5.0-8.0) Ur Specific [place] (1.005-1.030) Urine Protein (Negative) Urine Glucose (UA) (Negative) Urine Ketones (Negative) Urine Occult Blood (Negative) Urine Nitrite (Negative) Urine Bilirubin (Negative) Urine Urobilinogen (0.2-1.0) Ur Leukocyte Esterase (Negative) Urine RBC (0-5) /hpf Urine WBC (0-5) /hpf Ur Epithelial Cells (0-5) /hpf Amorphous Sediment (NOT SEEN) /hpf Urine Bacteria (FEW) /hpf Urine Mucus (FEW) /hpf Ur Random Creatinine (30.0-125.0) mg/dL U Random Total Protein (0.0-11.8) mg/dL Protein/Creatinin Ratio (0-149) mg/g SARS-CoV-2 RNA (DANIELA) (NEGATIVE) 01/11/21 Range/Units 06:02 WBC (4.23-9.07) K/mm3 RBC (4.63-6.08) M/mm3 Hgb (13.7-17.5) gm/dl Hct (40.1-51.0) % MCV (79.0-92.2) fl MCH (25.7-32.2) pg MCHC (32.2-35.5) g/dl RDW Std Deviation (35.1-43.9) fL Plt Count (163-337) K/mm3 MPV (9.4-12.3) fl Neut % (Auto) (34.0-67.9) % Lymph % (Auto) (21.8-53.1) % [place] % (Auto) (5.3-12.2) % Eos % (Auto) (0.8-7.0) Baso % (Auto) (0.1-1.2) % Neut # (Auto) (1.78-5.38) K/mm3 Lymph # (Auto) (1.32-3.57) K/mm3 [place] # (Auto) (0.30-0.82) K/mm3 Eos # (Auto) (0.04-0.54) K/mm3 Baso # (Auto) (0.01-0.08) K/mm3 Manual Slide Review PT (9.7-12.0) SECONDS INR APTT (21.7-31.4) SECONDS Puncture Site ABG pH (7.35-7.45) ABG pCO2 (35.0-45.0) mmHg ABG pO2 (80.0-100.0) mmHg ABG HCO3 (22.0-26.0) meq/L ABG O2 Saturation (96.0-97.0) % ABG Base Excess (-2-2.0) Marvin Test O2 Delivery Device Sodium 143 (136-145) mEq/L Potassium 4.4 (3.5-5.1) mEq/L Chloride 103 (98-107) mEq/L Carbon Dioxide 32 (21-32) mEq/L Anion Gap 12.4 (5-15) BUN 14 (7-18) mg/dL Creatinine 1.1 (0.7-1.3) mg/dL Est Cr Clr Drug Dosing 77.62 mL/min Estimated GFR (MDRD) > 60 (>60) mL/min BUN/Creatinine Ratio 12.7 L (14-18) Glucose 179 H (74-106) mg/dL Uric Acid 5.1 (3.5-7.2) mg/dL Calcium 9.4 (8.5-10.1) mg/dL Magnesium 2.1 (1.8-2.4) mg/dl Total Bilirubin 0.4 (0.2-1.0) mg/dL AST 18 (15-37) U/L ALT 41 (16-63) U/L Alkaline Phosphatase 82 (46-116) U/L CK-MB (CK-2) (0-3.6) ng/ml Troponin I 0.037 (0.00-0.056) ng/mL C-Reactive Protein (<1.0) mg/dL NT-Pro-B Natriuret Pep (0-125) pg/mL Total Protein 6.9 (6.4-8.2) g/dl Albumin 3.3 L (3.4-5.0) g/dl Globulin 3.6 gm/dL Albumin/Globulin Ratio 0.9 L (1-2) Triglycerides 26 (<150) mg/dL Cholesterol 155 (<200) mg/dL LDL Cholesterol Direct 94 (<100) mg/dL HDL Cholesterol 52.0 (40-59) mg/dL Free T4 (0.76-1.46) ng/dL TSH 3rd Generation (0.358-3.74) uIU/mL Urine Color (Yellow) Urine Appearance (Clear) Urine pH (5.0-8.0) Ur Specific [place] (1.005-1.030) Urine Protein (Negative) Urine Glucose (UA) (Negative) Urine Ketones (Negative) Urine Occult Blood (Negative) Urine Nitrite (Negative) Urine Bilirubin (Negative) Urine Urobilinogen (0.2-1.0) Ur Leukocyte Esterase (Negative) Urine RBC (0-5) /hpf Urine WBC (0-5) /hpf Ur Epithelial Cells (0-5) /hpf Amorphous Sediment (NOT SEEN) /hpf Urine Bacteria (FEW) /hpf Urine Mucus (FEW) /hpf Ur Random Creatinine (30.0-125.0) mg/dL U Random Total Protein (0.0-11.8) mg/dL Protein/Creatinin Ratio (0-149) mg/g SARS-CoV-2 RNA (DANIELA) (NEGATIVE) Result Diagrams: 01/11/21 06:02 01/11/21 06:02 Sepsis Event Note - Evaluation Sepsis Screening Result: No Definite Risk - Focused Exam Vital Signs: Vital Signs Temp Pulse Resp BP BP Pulse Ox Pulse Ox 01/11/21 08:48 67 126/84 03/11/21 08:00 36.1 C 16 126/84 91 L 01/11/21 06:00 91 L 01/11/21 04:00 36.2 C 16 128/79 91 L 01/11/21 02:44 95 01/11/21 00:00 36.4 C 19 121/79 93 L 01/10/21 23:48 94 L - Problem List Review Problem List Initiated/Reviewed/Updated: Yes - Plan Plan:: Assessment 45-year-old male with no significant prior medical history presents with severe asthma exacerbation and malignant hypertension. Patient has been having worsening shortness of breath for 3 years and last seen 6 years ago by a physician. At that time he was told he had high blood pressure and started on blood pressure medication. Acute asthma exacerbation Bronchitis Acute respiratory failure mixed hypoxia and hypercapnia * Syncopal episode likely secondary to respiratory failure * Initial oxygen saturations in the upper 80s requiring multiple DuoNeb breathin g treatments in the emergency department * Blood gas consistent with compensated respiratory alkalosis suggesting a long course of CO2 retention * Chest x-ray consistent with bronchitis but no cardiomegaly. * Still requiring 2 L nasal cannula at time of admission * Receive Solu-Medrol 125 mg IV x1 in the emergency department Malignant hypertension Likely history of previous hypertension diagnosed 6 years ago No known work-up of hypertension * Initial blood pressure 178/122 * Required multiple IV medications to control blood pressure including Vasotec 1.25 mg IV, hydralazine 10 mg IV x2, p.o. Cardizem CD 300 mg x 1, Furosemide 40 mg IV x1 * EKG consistent with previous anteroseptal infarct * Mildly elevated BNP and troponin showing cardiac strain and possible type II CT Plan * Admit to ICU; continue ICU. Adjust medications to avoid side effects. * 2D echo; CT of chest wo, w/o contrast. * Nicardipine drip if blood pressure becomes unstable and sustained again with systolic pressure greater than 180 or diastolic blood pressure greater than 110 * Hydralazine 10 mg every 2 hours as needed for blood pressures greater than 170/100 * Start metoprolol tartrate 25 mg p.o. every 12 hours in the morning if respiratory status allows * Lisinopril 20 mg p.o. bedtime * Crestor 10 mg p.o. daily * ASA 81 mg daily * Solu-Medrol 40 mg every 6 hours IV * Doxycycline 100 mg IV every 12 hours * DuoNeb every 6 hours scheduled * Albuterol every 2 hours as needed * FiO2 to keep SPO2 above 92% * CBC, CMP, mag, aldosterone, aldosterone/renin ratio, TSH, T4, echocardiogram, kidney ultrasound with renal artery Dopplers, repeat troponin, lipid panel, uric acid * VTE prophylaxis with Lovenox * CODE STATUS: Full code
--- NOTE | 2021-01-11 09:36 | US ---
Renal ultrasound with renal arterial Doppler evaluation. Multiple real-time images of the kidneys were obtained as well as duplex and color Doppler evaluation of the renal arteries. Kidneys show no hydronephrosis or mass. Right kidney has a length of 11.3 cm and left kidney has a length of 11.1 cm. Resistivity indices are normal within both kidneys. Right renal artery has a maximum systolic velocity measurement of 1.35 m/s. Left renal artery has a maximum systolic velocity measurement of 2.00 m/s. Impression: 1. Findings suspicious for possible left renal artery stenosis with elevated velocity measurement as noted above. 2. Other portions of the renal ultrasound exam are unremarkable. Diagnostic code #3
[2021-01-11] MEDS ORDERED: Iopamidol 612 MG/ML 100 ML Bottle IVPUSH ONE (10:18)
[2021-01-11] MEDS ORDERED: Iopamidol 612 MG/ML 50 ML SDV IVPUSH ONE (10:18)
[2021-01-11] MEDS ORDERED: Sodium Chloride 0.9% 10 ML Syringe FLUSH PRN (10:19)
[2021-01-11] MEDS ORDERED: Albuterol 6.7 GM Inhaler INH PRN (12:20)
--- NOTE | 2021-01-11 12:26 | CT ---
CT chest Technique: Multiple axial sections through the chest were obtained. Study was performed without and with intravenous contrast. Comparison: No prior chest CT study is available, prior chest x-ray exam of 01/10/21. Findings: Thoracic aorta shows normal opacification without aneurysm. Mediastinum shows lymph nodes with largest measuring 1.4 cm which are slightly prominent. No hilar adenopathy is seen. No pericardial thickening is seen. Visualized upper abdominal structures show nothing acute. Lung window settings were reviewed which show slight right basilar atelectasis or scarring. There is minimal bronchial wall thickening within the portion of the right base compatible with minimal bronchitis. Lungs show no other acute infiltrates. No pleural effusions are seen. Incidental note of a small subpleural nodule within the right upper lung measuring several millimeters. Bone window settings were reviewed which show scattered degenerative disc space narrowing and spurring within the spine. No acute osseous abnormality is appreciated. Old fracture is noted within the left mid chest. Impression: 1. Minimal bronchial wall thickening within the right lower lung compatible with mild bronchitis. 2. Slightly prominent mediastinal lymph nodes. This may relate to old inflammatory change, but recommend noncontrast chest CT study in 6 months to confirm stability. 3. Minimal scarring or atelectasis within the right lung base. Diagnostic code #9
[2021-01-11] MEDS ORDERED: cefTRIAXone 2 GM in Sodium Chloride 0.9% 100 ML IV SCH (19:00)
[2021-01-11] MEDS ORDERED: Azithromycin 500 MG in Sodium Chloride 0.9% 250 ML IV SCH (20:00)
[2021-01-11] MEDS: Lisinopril 20 MG Tab PO SCH (20:18)
[2021-01-11] MEDS: Dexamethasone 4 MG Tab PO SCH (20:40)
[2021-01-12] MEDS: Albuterol/Ipratropium 3.0-0.5 MG/3 ML Neb Soln NEB SCH ×2 (02:11→08:53)
[2021-01-12 06:56] LABS: HEMOGLOBIN A1C 5.7 %
[2021-01-12] MEDS: Acetaminophen 325 MG Tab PO PRN (08:05)
[2021-01-12] MEDS: Rosuvastatin 10 MG Tab PO SCH (08:06)
[2021-01-12] MEDS: Dexamethasone 4 MG Tab PO SCH (08:06)
[2021-01-12] MEDS: Aspirin 81 MG Tab.EC PO SCH (08:06)
[2021-01-12] MEDS: Metoprolol Tartrate 50 MG Tab PO SCH (08:07)
[2021-01-12] MEDS: Enoxaparin 40 MG/0.4 ML Syringe SUBCUT SCH (08:07)
[2021-01-12] MEDS: Chlorthalidone 25 MG Tab PO SCH (08:07)
--- NOTE | 2021-01-12 11:06 | PCM.DCSUM1 ---
Discharge Summary - Hospital Course HPI Initial Comments: 45-year-old male who presented to the clinic after passing out walking to his car was referred to the emergency department secondary to severely elevated blood pressure. Patient states that for the last couple weeks he has been unable to walk short distance without getting short of breath and he has having to sleep upright because he feels like he is drowning if he lays down. Patient states he for started getting short of breath approximately 3 years ago and over the last 6 to 8 months has progressively getting worse. He started smoking 5 years ago because when he had dental implants placed he was unable to chew tobacco. He for started chewing tobacco 25 years ago. Patient was last seen by a physician in 2014 and he had severely elevated blood pressure at that time. Patient states that he was very short of breath today and that is why he passed out going to his car. He could not catch his breath. Patient states he has occasional cough with occasional white sputum. No prior history of lung issues prior to 5 years ago. He has been waking up recently with severe headaches and today has a severe headache with blurred vision. He denies any chest pain or palpitations. 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 He does have a right collarbone plate that has been causing him more pain recently. In the emergency department his initial blood pressure was 178/122. He was also hypoxic with initial 88% on room air. Diagnosis: Stroke: No - Discharge Data Discharge Date: 01/12/21 Discharge Disposition: Home, Self-Care 01 Condition: Good - Referral to Home Health Primary Care Physician: PCP None - Patient Summary/Data Labs Pending at D/C: Repeated potassium, had K 5.1; repeat BMP the week of 01/15/21. Recommended Follow-up Testing/Procedures: BMP, re: K Hospital Course: 45 year old male with pre-diabetes, reasonable FLP and obesity presented with markedly elevated BP. Was treated with PO/IV anti-hypertensive agents with good response. Hospital course was impended by hypoxemia. The patient had 2 COVID- 19 rapid test that were negative. Was treated for COVID-19, 24 hours before DC; he was not septic during the admission. RT assessment before DC documented no need for O2 prior to DC. Due to occasional episodes of decreased O2 saturation and improvement with Zithromax, he was DCd on Zithromax and Dexamethasone. Has IS to be performed several times daily. Discussed HTN, CAD, DM risk factors; was provided Habitrol at [facility]. States Cigarette usage has dropped to 6/day. Has follow up, 1 week after DC. - Patient Instructions Diet: Heart Healthy Diet Activity: As Tolerated Driving: May Drive Today Showering/Bathing: May Shower Notify Provider of: Fever, Increased Pain, Nausea and/or Vomiting - Discharge Plan *PRESCRIPTION DRUG MONITORING PROGRAM REVIEWED*: Not Applicable *COPY OF PRESCRIPTION DRUG MONITORING REPORT IN PATIENT [place]: Not Applicable Prescriptions/Med Rec: Chlorthalidone 25 mg PO DAILY #30 tablet dexAMETHasone [Dexamethasone] 6 mg PO DAILY #9 tablet Nicotine [Habitrol] 14 mg TRDERM DAILY #30 patch lisinopriL [Prinivil] 20 mg PO BEDTIME #30 tablet Azithromycin [Zithromax] 500 mg PO Q24H 4 Days #4 tab Home Medications: Home Meds Albuterol Sulfate [Proair Hfa] 2 puff INH Q4H PRN 01/11/21 [History] Metoprolol Tartrate 100 mg PO BID 01/11/21 [History] Acetaminophen [Tylenol] 650 mg PO Q4H PRN tablet 01/12/21 [Rx] Aspirin [Halfprin] 81 mg PO DAILY tab.ec 01/12/21 [Rx] Azithromycin [Zithromax] 500 mg PO Q24H 4 Days #4 tab 01/12/21 [Rx] Chlorthalidone 25 mg PO DAILY #30 tablet 01/12/21 [Rx] Nicotine [Habitrol] 14 mg TRDERM DAILY #30 patch 01/12/21 [Rx] dexAMETHasone [Dexamethasone] 6 mg PO DAILY #9 tablet 01/12/21 [Rx] lisinopriL [Prinivil] 20 mg PO BEDTIME #30 tablet 01/12/21 [Rx] Oxygen Therapy Mode: Room Air Patient Handouts: Asthma, Adult, Sepsis, Diagnosis, Adult, Hypertension, Adult, [id number], Preventing Hypertension, Steps to Quit Smoking Forms: ED Department Discharge Referrals: Anayeli Lynch MD [Physician] - 01/19/21 1:30 pm (Hospital follow-up appointment and to establish primary care. Come to the [facility] to register. Your appointment is at 2:00 p.m. but they would like you to come a half hour early.) - Discharge Summary/Plan Comment DC Time >30 min.: No Discharge Summary/Plan Comment: Plan:: Assessment 45-year-old male with no significant prior medical history presents with severe asthma exacerbation and malignant hypertension. Patient has been having worsening shortness of breath for 3 years and last seen 6 years ago by a physician. At that time he was told he had high blood pressure and started on blood pressure medication. Acute asthma exacerbation Bronchitis Acute respiratory failure mixed hypoxia and hypercapnia * Syncopal episode likely secondary to respiratory failure * Initial oxygen saturations in the upper 80s requiring multiple DuoNeb breathing treatments in the emergency department * Blood gas consistent with compensated respiratory alkalosis suggesting a long course of CO2 retention * Chest x-ray consistent with bronchitis but no cardiomegaly. * Still requiring 2 L nasal cannula at time of admission * Receive Solu-Medrol 125 mg IV x1 in the emergency department Malignant hypertension Likely history of previous hypertension diagnosed 6 years ago No known work-up of hypertension * Initial blood pressure 178/122 * Required multiple IV medications to control blood pressure including Vasotec 1.25 mg IV, hydralazine 10 mg IV x2, p.o. Cardizem CD 300 mg x 1, Furosemide 40 mg IV x1 * EKG consistent with previous anteroseptal infarct * Mildly elevated BNP and troponin showing cardiac strain and possible type II OR Plan * Admit to ICU; continue ICU. Adjust medications to avoid side effects. * 2D echo; CT of chest wo, w/o contrast. * Nicardipine drip if blood pressure becomes unstable and sustained again with systolic pressure greater than 180 or diastolic blood pressure greater than 110 * Hydralazine 10 mg every 2 hours as needed for blood pressures greater than 170/100 * Start metoprolol tartrate 25 mg p.o. every 12 hours in the morning if respiratory status allows * Lisinopril 20 mg p.o. bedtime * Crestor 10 mg p.o. daily * ASA 81 mg daily * Solu-Medrol 40 mg every 6 hours IV * Doxycycline 100 mg IV every 12 hours * DuoNeb every 6 hours scheduled * Albuterol every 2 hours as needed * FiO2 to keep SPO2 above 92% * CBC, CMP, mag, aldosterone, aldosterone/renin ratio, TSH, T4, echocardiogram, kidney ultrasound with renal artery Dopplers, repeat troponin, lipid panel, uric acid * VTE prophylaxis with Lovenox * CODE STATUS: Full code Imaging before DC 2D echo, normal LVEF, had mild concentric LVH; diastolic function was indeterminate CT of chest with and without contrast shopwed mild bronchitis. Presumptive treatment for PNA/COVID-19 at [facility] with steroid, Zithromax; early f ollow up at [facility]. - General Info Date of Service: 01/10/21 Functional Status: Reports: Pain Controlled, Tolerating Diet, Ambulating - Review of Systems General: Reports: No Symptoms HEENT: Reports: No Symptoms Pulmonary: Reports: No Symptoms Cardiovascular: Reports: No Symptoms Gastrointestinal: Reports: No Symptoms Genitourinary: Reports: No Symptoms Musculoskeletal: Reports: No Symptoms Skin: Reports: No Symptoms Neurological: Reports: No Symptoms Psychiatric: Reports: No Symptoms - Patient Data Vitals - Most Recent: Last Vital Signs Temp 36.1 C 01/12/21 08:00 Pulse 88 01/12/21 08:07 Resp 18 01/12/21 08:00 BP 141/92 H 01/12/21 08:07 Pulse Ox 91 L 01/12/21 08:55 Weight - Most Recent: 99.926 kg I&O - Last 24 hours: Intake & Output 01/11/21 01/12/21 01/12/21 22:59 06:59 14:59 Intake Total 1220 1200 Output Total 850 0 Balance 1220 350 0 Lab Results - Last 24 hrs: Laboratory Results - last 24 hr 01/11/21 01/12/21 01/12/21 Range/Units 21:49 05:42 05:42 D-Dimer, Quantitative (0.19-0.50) mg/L Sodium 142 (136-145) mEq/L Potassium 5.3 H (3.5-5.1) mEq/L Chloride 104 (98-107) mEq/L Carbon Dioxide 32 (21-32) mEq/L Anion Gap 11.3 (5-15) BUN 21 H (7-18) mg/dL Creatinine 1.1 (0.7-1.3) mg/dL Est Cr Clr Drug Dosing 77.62 mL/min Estimated GFR (MDRD) > 60 (>60) mL/min BUN/Creatinine Ratio 19.1 H (14-18) Glucose 145 H (74-106) mg/dL Hemoglobin A1c 5.7 H ( - 5.6) % Calcium 9.3 (8.5-10.1) mg/dL Magnesium 2.2 (1.8-2.4) mg/dl Troponin I 0.037 (0.00-0.056) ng/mL SARS-CoV-2 RNA (DANIELA) Negative (NEGATIVE) 01/12/21 Range/Units 05:42 D-Dimer, Quantitative 0.26 (0.19-0.50) mg/L Sodium (136-145) mEq/L Potassium (3.5-5.1) mEq/L Chloride (98-107) mEq/L Carbon Dioxide (21-32) mEq/L Anion Gap (5-15) BUN (7-18) mg/dL Creatinine (0.7-1.3) mg/dL Est Cr Clr Drug Dosing mL/min Estimated GFR (MDRD) (>60) mL/min BUN/Creatinine Ratio (14-18) Glucose (74-106) mg/dL Hemoglobin A1c ( - 5.6) % Calcium (8.5-10.1) mg/dL Magnesium (1.8-2.4) mg/dl Troponin I (0.00-0.056) ng/mL SARS-CoV-2 RNA (DANIELA) (NEGATIVE) - Exam Quality Assessment: Reports: DVT Prophylaxis General: Reports: Alert, Oriented, Cooperative, No Acute Distress HEENT: Reports: Pupils Equal, Pupils Reactive, EOMI Neck: Reports: Trachea Midline, No JVD Lungs: Reports: Normal Respiratory Effort Cardiovascular: Reports: Regular Rate, Regular Rhythm, No Murmurs GI/Abdominal Exam: Normal Bowel Sounds, Soft, Non-Tender, No Distention (Male) Exam: Deferred Rectal (Males) Exam: Deferred Back Exam: Reports: Normal Inspection, Full Range of Motion Extremities: Normal Inspection, Normal Range of Motion, Normal Capillary Refill Skin: Reports: Warm, Dry Neurological: Reports: No New Focal Deficit, Normal Gait, Normal Speech, Strength Equal Bilateral, Cranial Nerves Intact Psy/Mental Status: Reports: Alert, Normal Affect, Normal Mood
[2021-01-12 12:27] VITALS: BP 147/98; PULSE 75
[2021-01-12] MEDS ORDERED: Nicotine 14 MG/24 Hr Patch TRDERM SCH (13:00)
== END 2021-01-12 13:10 | disposition home or self-care (01) | DRG 189 ==
LOC: JD.ED 15:06 → JD.ICU 18:35
PROVIDERS: ADMIT Family Medicine; ATTEND Family Medicine
DX: J96.01 Acute respiratory failure with hypoxia (principal); J45.901 Unspecified asthma with (acute) exacerbation; E87.3 Alkalosis; J96.02 Acute respiratory failure with hypercapnia; I50.9 Heart failure, unspecified; I11.0 Hypertensive heart disease with heart failure; R77.8 Other specified abnormalities of plasma proteins; F17.210 Nicotine dependence, cigarettes, uncomplicated; I25.10 Atherosclerotic heart disease of native coronary artery without angina pectoris; Z20.822 Contact with and (suspected) exposure to COVID-19; Z79.899 Other long term (current) drug therapy; I25.2 Old myocardial infarction; R73.03 Prediabetes; E66.9 Obesity, unspecified; Z68.34 Body mass index [BMI] 34.0-34.9, adult
CPT/HCPCS: 36415; 36600; 70450; 70450-26; 71045; 71045-26; 71270; 71270-26; 76775; 76775-26; 80048; 80053; 80061; 81001; 82088; 82553; 82570; 82803; 83036; 83735; 83880; 84132; 84156; 84244; 84439; 84443; 84484; 84550; 85025; 85379; 85610; 85730; 86140; 93005; 93010; 93306; 93976; 93976-26; 94640; 99223; 99233; 99238; 99285; 99285-25; A9270-GY; J0360; J0456; J0696; J1650; J1940; J2920; J3490; J7030; J7050; J7620-GY; J8540; Q9967; U0002

== ENCOUNTER 2023-12-10 10:03 | Emergency (ER) | payer BC, OTHER ==
[2023-12-10 10:16] VITALS: PULSE 94
[2023-12-10] MEDS: Sodium Chloride 0.9% 10 ML Syringe FLUSH PRN (10:46)
[2023-12-10] MEDS: amLODIPine 10 MG Tab PO ONE (10:48)
[2023-12-10 11:20] LABS: A/G RATIO 1.3 (1-2); ALBUMIN 3.8 g/dl (3.4-5.0); ANION GAP 10.1 (5-15); BILIRUBIN TOTAL 0.6 mg/dL (0.2-1.0); CALCIUM 8.8 mg/dL (8.5-10.1); EST CRCL DRUG DOSING (CG) 82.63 mL/min; POTASSIUM,K 4.1 mEq/L (3.5-5.1); PROTEIN TOTAL,TP 6.7 g/dl (6.4-8.2)
[2023-12-10 11:40] LABS: APPEARANCE,URINE CLEAR (Clear); BILIRUBIN,URINE NEGATIVE (Negative); COLOR,URINE YELLOW (Yellow); GLUCOSE,URINE NEGATIVE (Negative); KETONES,URINE NEGATIVE (Negative); LEUKOCYTE ESTERASE,URINE NEGATIVE (Negative); NITRITE,URINE NEGATIVE (Negative); OCCULT BLOOD,URINE NEGATIVE (Negative); PROTEIN,URINE NEGATIVE (Negative)
[2023-12-10 11:49] LABS: AMORPHOUS SEDIMENT,URINE FEW /hpf (NOT SEEN); BACTERIA,URINE FEW /hpf (FEW); EPITHELIAL CELLS,URINE 0-5 /hpf (0-5); MUCUS,URINE MODERATE /hpf (FEW); RBC,URINE 0-5 /hpf (0-5); WBC,URINE 0-5 /hpf (0-5)
[2023-12-10] MEDS: Hydrochlorothiazide 25 MG Tab PO ONE (11:54)
[2023-12-10] MEDS: Lisinopril 20 MG Tab PO ONE (11:54)
[2023-12-10 15:44] VITALS: BP 205/129
== END 2023-12-10 13:25 | disposition home or self-care (01) ==
LOC: JD.ED 10:03
DX: I10 Essential (primary) hypertension (principal); Z91.138 Patient's unintentional underdosing of medication regimen for other reason; I25.2 Old myocardial infarction; Z79.899 Other long term (current) drug therapy
CPT/HCPCS: 36415; 80053; 81001; 84484; 93005; 99283; A9270; J3490; 93010